=== PATIENT | male | born 1965 | race African-American/Black ===

== ENCOUNTER 2021-12-11 05:27 | Inpatient (IN) | payer OTHER ==
[2021-12-11] MEDS ORDERED: NITROGLYCERIN 2% OINTMENT - 1GM PACKET TD ONE ×2 (05:36)
[2021-12-11] MEDS ORDERED: FUROSEMIDE 40 MG/4 ML INJECTABLE VIAL IVPUSH ONE (05:36)
[2021-12-11] MEDS ORDERED: FUROSEMIDE 40 MG/4 ML INJECTABLE VIAL ONE (05:37)
[2021-12-11 05:39] VITALS: BMI 18.3
[2021-12-11] MEDS ORDERED: methylPREDNISolone NA SUCC 125 MG/2 ML VIAL IVPUSH ONE ×2 (05:44→05:45)
[2021-12-11] MEDS: ALBUTEROL SO4 2.5/IPRATROPIUM 0.5 INH SOL 3 ML VIAL.NEB. NEB SCH ×3 (05:47→18:40)
[2021-12-11 05:57] LABS: BASO % 0.9 % (0-2.0); EOS % 0.8 % (0-4.5); HEMATOCRIT 30.4 % (35.4-49); HEMOGLOBIN 10.1 GM/dL (11.7-16.9); LYMPH % 11.6 % (8-40); MCH 31.9 pg (25.7-33.7); MEAN CELL VOLUME 96.6 fl (80-96); MEAN PLT VOLUME 7.1 fl (7.5-11.1); MONO % 8.2 % (3.8-10.2); NEUT % 78.5 % (42.8-82.8); PLATELET COUNT 277 10^3/uL (134-434); RBC 3.15 M/mm3 (4.00-5.60); RDW 17.5 % (11.9-15.9); WHITE BLOOD COUNT 12.5 K/mm3 (4.0-10.0)
[2021-12-11 06:15] LABS: CHLORIDE 101 mmol/L (98-107); SODIUM 140 mmol/L (136-145)
[2021-12-11 06:17] LABS: CALCIUM 9.3 mg/dL (8.5-10.1)
[2021-12-11 06:18] LABS: ALBUMIN 3.2 g/dl (3.4-5.0); ANION GAP 11 MMOL/L (8-16); CO2 28 mmol/L (21-32); GLUCOSE,RANDOM 142 mg/dL (74-106)
[2021-12-11 06:21] LABS: CREATININE 6.2 mg/dL (0.55-1.3); SGOT/AST 17 U/L (15-37); SGPT/ALT 21 U/L (13-61)
[2021-12-11 06:22] LABS: BILIRUBIN,TOTAL 0.4 mg/dL (0.2-1); TOT PROT 6.9 g/dl (6.4-8.2)
[2021-12-11 06:24] LABS: ALK PHOS 89 U/L (45-117)
[2021-12-11 06:43] LABS: N-TERMINAL BNP 41284.4 pg/ml (5-125)
[2021-12-11 07:21] LABS: ARTERIAL BLD GAS O2 SATURATION 99.4 % (95-98); ARTERIAL BLOOD GAS BASE EXCESS 0.7 mmol/L (-2-2); ARTERIAL BLOOD GAS PO2 208.4 mmHg (80-100); ARTERIAL BLOOD GAS pH 7.388 (7.350-7.450)
[2021-12-11 07:22] LABS: ALLENS TEST POSITIVE; VENT MODE PSV
[2021-12-11 07:23] LABS: VENT RATE 14
[2021-12-11] MEDS ORDERED: morphine CARPU-JECT 2 MG/1 ML DISP.SYRIN IVPUSH ONE (08:22)
[2021-12-11] MEDS ORDERED: SODIUM CHLORIDE 250 ML IV PRN (11:20)
[2021-12-11] MEDS ORDERED: CEFTRIAXONE 1 GM/50 ML BAG ONE (13:35)
[2021-12-11] MEDS: CEFTRIAXONE 1 GM in DEXTROSE 5%-WATER - 50 ML IVPB SCH (14:04)
[2021-12-11] MEDS: GABAPENTIN 100 MG CAPSULE PO SCH ×2 (16:00→21:26)
[2021-12-11] MEDS: hydrALAZINE HCL 50 MG TABLET (FP) PO SCH ×2 (18:30→21:26)
[2021-12-11] MEDS: HEPARIN NA (PORCINE) 5,000 UNITS/ML 1ML VIAL SQ SCH (21:31)
[2021-12-11] MEDS: CARVEDILOL 25 MG TABLET (FP) PO SCH (21:31)
[2021-12-12] MEDS: hydrALAZINE HCL 50 MG TABLET (FP) PO SCH ×3 (06:16→21:18)
[2021-12-12] MEDS: GABAPENTIN 100 MG CAPSULE PO SCH ×3 (06:24→21:18)
[2021-12-12 06:50] LABS: BASO % 0.5 % (0-2.0); EOS % 0.3 % (0-4.5); HEMATOCRIT 24.5 % (35.4-49); HEMOGLOBIN 8.2 GM/dL (11.7-16.9); LYMPH % 16.9 % (8-40); MCHC 33.6 g/dl (32.0-35.9); MEAN CELL VOLUME 95.3 fl (80-96); MEAN PLT VOLUME 7.4 fl (7.5-11.1); MONO % 12.9 % (3.8-10.2); NEUT % 69.4 % (42.8-82.8); PLATELET COUNT 224 10^3/uL (134-434); RBC 2.57 M/mm3 (4.00-5.60); RDW 17.6 % (11.9-15.9); WHITE BLOOD COUNT 9.2 K/mm3 (4.0-10.0)
[2021-12-12 07:05] LABS: CHLORIDE 99 mmol/L (98-107); SODIUM 139 mmol/L (136-145)
[2021-12-12 07:08] LABS: ALBUMIN 2.8 g/dl (3.4-5.0); BLOOD UREA NITROGEN 41.6 mg/dL (7-18); CALCIUM 8.8 mg/dL (8.5-10.1); CALCIUM 9.2 mg/dL (8.5-10.1)
[2021-12-12 07:09] LABS: ANION GAP 7 MMOL/L (8-16); BLOOD UREA NITROGEN 40.9 mg/dL (7-18); CO2 32 mmol/L (21-32); GLUCOSE,RANDOM 125 mg/dL (74-106)
[2021-12-12 07:11] LABS: CREATININE 5.3 mg/dL (0.55-1.3)
[2021-12-12 07:12] LABS: CREATININE 5.3 mg/dL (0.55-1.3); TOT PROT 5.9 g/dl (6.4-8.2)
[2021-12-12 07:13] LABS: BILIRUBIN,TOTAL 0.4 mg/dL (0.2-1)
[2021-12-12] MEDS ORDERED: DEXTROSE 5%-WATER - 50 ML IVPB ONE (09:25)
[2021-12-12] MEDS ORDERED: cefTRIAXone SODIUM 1 GM VIAL ONE (09:25)
[2021-12-12] MEDS: CARVEDILOL 25 MG TABLET (FP) PO SCH ×2 (09:32→21:18)
[2021-12-12] MEDS: FUROSEMIDE 40 MG/4 ML INJECTABLE VIAL IVPB ONE ×2 (09:32→09:34)
[2021-12-12] MEDS: ROSUVASTATIN CA 10 MG TABLET PO SCH (09:32)
[2021-12-12] MEDS: ASPIRIN COATED 81 MG TABLET.EC PO SCH (09:33)
[2021-12-12] MEDS: amLODIPine BESYLATE 10 MG TABLET (FP) PO SCH (09:33)
[2021-12-12] MEDS: CEFTRIAXONE 1 GM in DEXTROSE 5%-WATER - 50 ML IVPB SCH (09:33)
[2021-12-12] MEDS: HEPARIN NA (PORCINE) 5,000 UNITS/ML 1ML VIAL SQ SCH ×2 (09:33→21:20)
[2021-12-12] MEDS ORDERED: SODIUM CHLORIDE 250 ML IV PRN (11:35)
[2021-12-13] MEDS: GABAPENTIN 100 MG CAPSULE PO SCH ×3 (05:41→21:44)
[2021-12-13] MEDS: hydrALAZINE HCL 50 MG TABLET (FP) PO SCH ×3 (05:41→21:44)
[2021-12-13] MEDS ORDERED: EPOETIN ALFA-EPBX 10,000 UNIT/ML VIAL IVPUSH ONE (08:00)
[2021-12-13 09:12] LABS: CHLORIDE 100 mmol/L (98-107); SODIUM 139 mmol/L (136-145)
[2021-12-13 09:13] LABS: HEMATOCRIT 23.6 % (35.4-49); MCH 32.5 pg (25.7-33.7); MCHC 33.7 g/dl (32.0-35.9); MEAN CELL VOLUME 96.2 fl (80-96); MEAN PLT VOLUME 7.4 fl (7.5-11.1); PLATELET COUNT 247 10^3/uL (134-434); RBC 2.46 M/mm3 (4.00-5.60); RDW 17.5 % (11.9-15.9); WHITE BLOOD COUNT 7.9 K/mm3 (4.0-10.0)
[2021-12-13 09:14] LABS: CALCIUM 8.1 mg/dL (8.5-10.1)
[2021-12-13 09:15] LABS: ANION GAP 11 MMOL/L (8-16); BLOOD UREA NITROGEN 57.2 mg/dL (7-18); CO2 28 mmol/L (21-32); GLUCOSE,RANDOM 84 mg/dL (74-106)
[2021-12-13 09:19] LABS: CREATININE 7.5 mg/dL (0.55-1.3)
[2021-12-13] MEDS ORDERED: cefTRIAXone SODIUM 1 GM VIAL ONE (11:07)
[2021-12-13] MEDS ORDERED: DEXTROSE 5%-WATER - 50 ML IVPB ONE (11:07)
[2021-12-13] MEDS: CEFTRIAXONE 1 GM in DEXTROSE 5%-WATER - 50 ML IVPB SCH (11:31)
[2021-12-13] MEDS: ASPIRIN COATED 81 MG TABLET.EC PO SCH (11:31)
[2021-12-13] MEDS: HEPARIN NA (PORCINE) 5,000 UNITS/ML 1ML VIAL SQ SCH ×2 (11:31→21:44)
[2021-12-13] MEDS: CARVEDILOL 25 MG TABLET (FP) PO SCH ×2 (11:32→21:44)
[2021-12-13] MEDS: amLODIPine BESYLATE 10 MG TABLET (FP) PO SCH (11:32)
[2021-12-13] MEDS: ROSUVASTATIN CA 10 MG TABLET PO SCH (11:32)
[2021-12-13] MEDS ORDERED: EPOETIN ALFA-EPBX 10,000 UNIT/ML VIAL SQ ONE (11:35)
[2021-12-13] MEDS ORDERED: SODIUM CHLORIDE 250 ML IV PRN (11:41)
[2021-12-14] MEDS: hydrALAZINE HCL 50 MG TABLET (FP) PO SCH ×3 (05:59→21:00)
[2021-12-14] MEDS: GABAPENTIN 100 MG CAPSULE PO SCH ×3 (06:00→21:00)
[2021-12-14] MEDS ORDERED: DEXTROSE 5%-WATER - 50 ML IVPB ONE (09:57)
[2021-12-14] MEDS ORDERED: cefTRIAXone SODIUM 1 GM VIAL ONE (09:57)
[2021-12-14] MEDS: CEFTRIAXONE 1 GM in DEXTROSE 5%-WATER - 50 ML IVPB SCH (10:08)
[2021-12-14] MEDS: ASPIRIN COATED 81 MG TABLET.EC PO SCH (10:08)
[2021-12-14] MEDS: amLODIPine BESYLATE 10 MG TABLET (FP) PO SCH (10:08)
[2021-12-14] MEDS: ROSUVASTATIN CA 10 MG TABLET PO SCH (10:08)
[2021-12-14] MEDS: CARVEDILOL 25 MG TABLET (FP) PO SCH ×2 (10:08→21:00)
[2021-12-14] MEDS: HEPARIN NA (PORCINE) 5,000 UNITS/ML 1ML VIAL SQ SCH ×2 (10:08→21:00)
[2021-12-14 12:52] LABS: HEMATOCRIT 24.1 % (35.4-49); MCH 31.7 pg (25.7-33.7); MEAN CELL VOLUME 96.1 fl (80-96); MEAN PLT VOLUME 6.8 fl (7.5-11.1); PLATELET COUNT 240 10^3/uL (134-434); RBC 2.51 M/mm3 (4.00-5.60); RDW 17.8 % (11.9-15.9); WHITE BLOOD COUNT 5.2 K/mm3 (4.0-10.0)
[2021-12-14 13:20] LABS: CALCIUM 8.6 mg/dL (8.5-10.1)
[2021-12-14 13:24] LABS: BLOOD UREA NITROGEN 29.2 mg/dL (7-18); CREATININE 4.6 mg/dL (0.55-1.3)
[2021-12-14] MEDS ORDERED: ACETAMINOPHEN 1000 MG/100 ML BAG IVPB ONE (20:00)
[2021-12-15] MEDS: GABAPENTIN 100 MG CAPSULE PO SCH ×3 (05:19→21:00)
[2021-12-15] MEDS: hydrALAZINE HCL 50 MG TABLET (FP) PO SCH ×3 (05:19→21:00)
[2021-12-15] MEDS ORDERED: ACETAMINOPHEN 1000 MG/100 ML BAG IVPB ONE (06:45)
[2021-12-15] MEDS ORDERED: cefTRIAXone SODIUM 1 GM VIAL ONE (10:06)
[2021-12-15] MEDS ORDERED: DEXTROSE 5%-WATER - 50 ML IVPB ONE (10:06)
[2021-12-15] MEDS: CEFTRIAXONE 1 GM in DEXTROSE 5%-WATER - 50 ML IVPB SCH (10:30)
[2021-12-15] MEDS: ROSUVASTATIN CA 10 MG TABLET PO SCH (10:30)
[2021-12-15] MEDS: CARVEDILOL 25 MG TABLET (FP) PO SCH ×2 (10:30→21:00)
[2021-12-15] MEDS: amLODIPine BESYLATE 10 MG TABLET (FP) PO SCH (10:30)
[2021-12-15] MEDS: HEPARIN NA (PORCINE) 5,000 UNITS/ML 1ML VIAL SQ SCH ×2 (10:31→21:00)
[2021-12-15] MEDS: ASPIRIN COATED 81 MG TABLET.EC PO SCH (10:31)
[2021-12-15] MEDS ORDERED: SODIUM CHLORIDE 250 ML IV PRN (12:18)
[2021-12-15] MEDS ORDERED: EPOETIN ALFA-EPBX 10,000 UNIT/ML VIAL SQ ONE (13:00)
[2021-12-16] MEDS: ACETAMINOPHEN 1000 MG/100 ML BAG IVPB PRN ×2 (00:07→10:39)
[2021-12-16] MEDS: GABAPENTIN 100 MG CAPSULE PO SCH ×3 (05:17→21:53)
[2021-12-16] MEDS: hydrALAZINE HCL 50 MG TABLET (FP) PO SCH ×3 (05:18→21:52)
[2021-12-16] MEDS ORDERED: cefTRIAXone SODIUM 1 GM VIAL ONE (08:20)
[2021-12-16] MEDS ORDERED: DEXTROSE 5%-WATER - 50 ML IVPB ONE (08:21)
[2021-12-16] MEDS: HEPARIN NA (PORCINE) 5,000 UNITS/ML 1ML VIAL SQ SCH ×2 (09:58→21:56)
[2021-12-16] MEDS: ROSUVASTATIN CA 10 MG TABLET PO SCH (09:58)
[2021-12-16] MEDS: amLODIPine BESYLATE 10 MG TABLET (FP) PO SCH (09:58)
[2021-12-16] MEDS: CARVEDILOL 25 MG TABLET (FP) PO SCH ×2 (09:59→21:53)
[2021-12-16] MEDS: CEFTRIAXONE 1 GM in DEXTROSE 5%-WATER - 50 ML IVPB SCH (09:59)
[2021-12-16] MEDS: ASPIRIN COATED 81 MG TABLET.EC PO SCH (09:59)
[2021-12-16] MEDS ORDERED: SODIUM CHLORIDE 250 ML IV PRN (11:32)
[2021-12-16] MEDS: ACETAMINOPHEN 325 MG TABLET (FP) PO PRN (22:43)
[2021-12-17] MEDS: hydrALAZINE HCL 50 MG TABLET (FP) PO SCH ×3 (06:49→21:40)
[2021-12-17] MEDS: GABAPENTIN 100 MG CAPSULE PO SCH ×3 (06:49→21:41)
[2021-12-17] MEDS ORDERED: EPOETIN ALFA-EPBX 10,000 UNIT/ML VIAL SQ ONE (07:00)
[2021-12-17 07:37] LABS: HEMATOCRIT 24.9 % (35.4-49); HEMOGLOBIN 8.2 GM/dL (11.7-16.9); MCH 32.2 pg (25.7-33.7); MCHC 33.1 g/dl (32.0-35.9); MEAN CELL VOLUME 97.2 fl (80-96); MEAN PLT VOLUME 6.8 fl (7.5-11.1); PLATELET COUNT 265 10^3/uL (134-434); RBC 2.56 M/mm3 (4.00-5.60); RDW 18.7 % (11.9-15.9); WHITE BLOOD COUNT 7.1 K/mm3 (4.0-10.0)
[2021-12-17 07:59] LABS: CALCIUM 8.7 mg/dL (8.5-10.1)
[2021-12-17 08:00] LABS: ALBUMIN 2.4 g/dl (3.4-5.0); BLOOD UREA NITROGEN 38.2 mg/dL (7-18)
[2021-12-17 08:03] LABS: CREATININE 5.9 mg/dL (0.55-1.3); PHOSPHOROUS 5.1 mg/dL (2.5-4.9)
[2021-12-17 08:04] LABS: TOT PROT 5.6 g/dl (6.4-8.2)
[2021-12-17 08:05] LABS: BILIRUBIN,TOTAL 0.3 mg/dL (0.2-1)
[2021-12-17] MEDS ORDERED: cefTRIAXone SODIUM 1 GM VIAL ONE (09:24)
[2021-12-17] MEDS ORDERED: DEXTROSE 5%-WATER - 50 ML IVPB ONE (09:24)
[2021-12-17 10:35] LABS: ANISOCYTOSIS 1+; MACROCYTOSIS 1+; OVALOCYTE 1+
[2021-12-17] MEDS: HEPARIN NA (PORCINE) 5,000 UNITS/ML 1ML VIAL SQ SCH ×2 (11:59→21:38)
[2021-12-17] MEDS: ROSUVASTATIN CA 10 MG TABLET PO SCH (11:59)
[2021-12-17] MEDS: CEFTRIAXONE 1 GM in DEXTROSE 5%-WATER - 50 ML IVPB SCH (11:59)
[2021-12-17] MEDS: CARVEDILOL 25 MG TABLET (FP) PO SCH ×2 (12:00→21:40)
[2021-12-17] MEDS: amLODIPine BESYLATE 10 MG TABLET (FP) PO SCH (12:00)
[2021-12-17] MEDS: ASPIRIN COATED 81 MG TABLET.EC PO SCH (12:00)
[2021-12-17] MEDS: DEXAMETHASONE SOD PHOSPHATE 10 MG/1 ML VIAL IM SCH (16:02)
[2021-12-17] MEDS: ALBUTEROL SO4 2.5/IPRATROPIUM 0.5 INH SOL 3 ML VIAL.NEB. NEB SCH ×2 (16:45→20:23)
[2021-12-17] MEDS: ACETAMINOPHEN 325 MG TABLET (FP) PO PRN (20:38)
[2021-12-18] MEDS: hydrALAZINE HCL 50 MG TABLET (FP) PO SCH ×3 (05:41→21:24)
[2021-12-18] MEDS: GABAPENTIN 100 MG CAPSULE PO SCH ×3 (05:41→21:24)
[2021-12-18] MEDS: ALBUTEROL SO4 2.5/IPRATROPIUM 0.5 INH SOL 3 ML VIAL.NEB. NEB SCH ×4 (08:53→20:12)
[2021-12-18] MEDS ORDERED: DEXTROSE 5%-WATER - 50 ML IVPB ONE (09:53)
[2021-12-18] MEDS ORDERED: cefTRIAXone SODIUM 1 GM VIAL ONE (09:53)
[2021-12-18] MEDS: ASPIRIN COATED 81 MG TABLET.EC PO SCH (09:59)
[2021-12-18] MEDS: amLODIPine BESYLATE 10 MG TABLET (FP) PO SCH (09:59)
[2021-12-18] MEDS: DEXAMETHASONE SOD PHOSPHATE 10 MG/1 ML VIAL IM SCH (10:00)
[2021-12-18] MEDS: CARVEDILOL 25 MG TABLET (FP) PO SCH ×2 (10:00→21:30)
[2021-12-18] MEDS: ROSUVASTATIN CA 10 MG TABLET PO SCH (10:00)
[2021-12-18] MEDS: HEPARIN NA (PORCINE) 5,000 UNITS/ML 1ML VIAL SQ SCH (10:00)
[2021-12-18] MEDS: CEFTRIAXONE 1 GM in DEXTROSE 5%-WATER - 50 ML IVPB SCH (10:01)
[2021-12-18] MEDS: ISOSORBIDE DINITRATE 20 MG TABLET PO SCH ×2 (13:34→17:54)
[2021-12-19] MEDS: GABAPENTIN 100 MG CAPSULE PO SCH ×3 (05:31→21:01)
[2021-12-19] MEDS: hydrALAZINE HCL 50 MG TABLET (FP) PO SCH ×3 (05:32→21:01)
[2021-12-19] MEDS: ALBUTEROL SO4 2.5/IPRATROPIUM 0.5 INH SOL 3 ML VIAL.NEB. NEB SCH ×4 (07:32→20:13)
[2021-12-19] MEDS: ISOSORBIDE DINITRATE 20 MG TABLET PO SCH ×3 (08:43→17:33)
[2021-12-19] MEDS: ROSUVASTATIN CA 10 MG TABLET PO SCH (09:01)
[2021-12-19] MEDS: CARVEDILOL 25 MG TABLET (FP) PO SCH ×2 (09:01→21:01)
[2021-12-19] MEDS: amLODIPine BESYLATE 10 MG TABLET (FP) PO SCH (09:01)
[2021-12-19] MEDS: ASPIRIN COATED 81 MG TABLET.EC PO SCH (09:01)
[2021-12-19] MEDS: ACETAMINOPHEN 325 MG TABLET (FP) PO PRN (18:07)
[2021-12-20] MEDS: GABAPENTIN 100 MG CAPSULE PO SCH ×3 (05:31→21:05)
[2021-12-20] MEDS: hydrALAZINE HCL 50 MG TABLET (FP) PO SCH ×3 (05:31→21:05)
[2021-12-20] MEDS ORDERED: SODIUM CHLORIDE 250 ML IV PRN (08:23)
[2021-12-20] MEDS: ALBUTEROL SO4 2.5/IPRATROPIUM 0.5 INH SOL 3 ML VIAL.NEB. NEB SCH ×4 (08:40→21:00)
[2021-12-20] MEDS: ISOSORBIDE DINITRATE 20 MG TABLET PO SCH ×3 (08:50→17:47)
[2021-12-20 09:30] LABS: HEMATOCRIT 27.5 % (35.4-49); MCH 32.3 pg (25.7-33.7); MCHC 32.7 g/dl (32.0-35.9); MEAN CELL VOLUME 98.8 fl (80-96); MEAN PLT VOLUME 6.8 fl (7.5-11.1); PLATELET COUNT 315 10^3/uL (134-434); RBC 2.78 M/mm3 (4.00-5.60); RDW 19.4 % (11.9-15.9); WHITE BLOOD COUNT 9.4 K/mm3 (4.0-10.0)
[2021-12-20 09:49] LABS: CHLORIDE 100 mmol/L (98-107); SODIUM 140 mmol/L (136-145)
[2021-12-20 09:51] LABS: CALCIUM 8.8 mg/dL (8.5-10.1)
[2021-12-20 09:52] LABS: ALBUMIN 2.8 g/dl (3.4-5.0); ANION GAP 14 MMOL/L (8-16); CO2 26 mmol/L (21-32); GLUCOSE,RANDOM 89 mg/dL (74-106)
[2021-12-20 09:55] LABS: SGOT/AST 9 U/L (15-37); SGPT/ALT 25 U/L (13-61)
[2021-12-20 09:56] LABS: TOT PROT 6.2 g/dl (6.4-8.2)
[2021-12-20 09:57] LABS: BILIRUBIN,TOTAL 0.3 mg/dL (0.2-1)
[2021-12-20 09:58] LABS: ALK PHOS 87 U/L (45-117)
[2021-12-20 10:07] LABS: BLOOD UREA NITROGEN 66.2 mg/dL (7-18); CREATININE 8.5 mg/dL (0.55-1.3)
[2021-12-20 10:16] LABS: ANISOCYTOSIS 2+; MACROCYTOSIS 2+
[2021-12-20] MEDS: ROSUVASTATIN CA 10 MG TABLET PO SCH (10:39)
[2021-12-20] MEDS: ASPIRIN COATED 81 MG TABLET.EC PO SCH (10:39)
[2021-12-20] MEDS: CARVEDILOL 25 MG TABLET (FP) PO SCH ×2 (15:10→21:05)
[2021-12-20] MEDS: amLODIPine BESYLATE 10 MG TABLET (FP) PO SCH (15:11)
[2021-12-21] MEDS: hydrALAZINE HCL 50 MG TABLET (FP) PO SCH ×3 (06:12→21:55)
[2021-12-21] MEDS: GABAPENTIN 100 MG CAPSULE PO SCH ×3 (06:12→21:56)
[2021-12-21 06:46] LABS: HEMATOCRIT 25.5 % (35.4-49); HEMOGLOBIN 8.3 GM/dL (11.7-16.9); MCH 32.3 pg (25.7-33.7); MCHC 32.5 g/dl (32.0-35.9); MEAN CELL VOLUME 99.4 fl (80-96); MEAN PLT VOLUME 6.7 fl (7.5-11.1); PLATELET COUNT 288 10^3/uL (134-434); RBC 2.56 M/mm3 (4.00-5.60); RDW 19.6 % (11.9-15.9); WHITE BLOOD COUNT 8.4 K/mm3 (4.0-10.0)
[2021-12-21] MEDS: ALBUTEROL SO4 2.5/IPRATROPIUM 0.5 INH SOL 3 ML VIAL.NEB. NEB SCH ×4 (08:30→20:35)
[2021-12-21] MEDS: ISOSORBIDE DINITRATE 20 MG TABLET PO SCH ×3 (08:45→18:37)
[2021-12-21] MEDS ORDERED: REGADENOSON 0.4 MG/5 ML PRE-FILLED SYRINGE IVPUSH ONE ×2 (09:00→09:15)
[2021-12-21] MEDS: amLODIPine BESYLATE 10 MG TABLET (FP) PO SCH (11:00)
[2021-12-21] MEDS: ASPIRIN COATED 81 MG TABLET.EC PO SCH (13:39)
[2021-12-21] MEDS: ROSUVASTATIN CA 10 MG TABLET PO SCH (13:40)
[2021-12-21] MEDS: CARVEDILOL 25 MG TABLET (FP) PO SCH ×2 (13:40→21:56)
[2021-12-22] MEDS: hydrALAZINE HCL 50 MG TABLET (FP) PO SCH ×3 (06:04→21:31)
[2021-12-22] MEDS: GABAPENTIN 100 MG CAPSULE PO SCH ×3 (06:04→21:30)
[2021-12-22] MEDS: ALBUTEROL SO4 2.5/IPRATROPIUM 0.5 INH SOL 3 ML VIAL.NEB. NEB SCH ×2 (07:27→11:20)
[2021-12-22] MEDS: ISOSORBIDE DINITRATE 20 MG TABLET PO SCH ×3 (08:59→17:51)
[2021-12-22] MEDS ORDERED: EPOETIN ALFA-EPBX 10,000 UNIT/ML VIAL SQ ONE (11:30)
[2021-12-22 12:17] LABS: HEMATOCRIT 25.7 % (35.4-49); HEMOGLOBIN 8.6 GM/dL (11.7-16.9); MCH 32.7 pg (25.7-33.7); MCHC 33.3 g/dl (32.0-35.9); MEAN CELL VOLUME 98.2 fl (80-96); MEAN PLT VOLUME 6.9 fl (7.5-11.1); PLATELET COUNT 307 10^3/uL (134-434); RBC 2.62 M/mm3 (4.00-5.60); RDW 20.4 % (11.9-15.9); WHITE BLOOD COUNT 6.3 K/mm3 (4.0-10.0)
[2021-12-22 12:40] LABS: CALCIUM 8.2 mg/dL (8.5-10.1)
[2021-12-22 12:41] LABS: BLOOD UREA NITROGEN 50.6 mg/dL (7-18)
[2021-12-22] MEDS ORDERED: SODIUM CHLORIDE 250 ML IV PRN (12:46)
[2021-12-22 12:53] LABS: CREATININE 7.4 mg/dL (0.55-1.3)
[2021-12-22] MEDS: amLODIPine BESYLATE 10 MG TABLET (FP) PO SCH (14:40)
[2021-12-22] MEDS: ASPIRIN COATED 81 MG TABLET.EC PO SCH (14:42)
[2021-12-22] MEDS: ROSUVASTATIN CA 10 MG TABLET PO SCH (14:42)
[2021-12-22] MEDS: CARVEDILOL 25 MG TABLET (FP) PO SCH ×2 (14:44→21:31)
[2021-12-23] MEDS: GABAPENTIN 100 MG CAPSULE PO SCH ×3 (05:35→21:05)
[2021-12-23] MEDS: hydrALAZINE HCL 50 MG TABLET (FP) PO SCH ×3 (05:36→21:05)
[2021-12-23] MEDS: ISOSORBIDE DINITRATE 20 MG TABLET PO SCH ×3 (08:44→17:47)
[2021-12-23] MEDS: amLODIPine BESYLATE 10 MG TABLET (FP) PO SCH (10:36)
[2021-12-23] MEDS: CARVEDILOL 25 MG TABLET (FP) PO SCH ×2 (10:36→21:05)
[2021-12-23] MEDS: ROSUVASTATIN CA 10 MG TABLET PO SCH (10:36)
[2021-12-23] MEDS: ASPIRIN COATED 81 MG TABLET.EC PO SCH (10:36)
[2021-12-23] MEDS ORDERED: SODIUM CHLORIDE 250 ML IV PRN (14:07)
[2021-12-24] MEDS: ALBUTEROL SO4 2.5/IPRATROPIUM 0.5 INH SOL 3 ML VIAL.NEB. NEB PRN ×2 (01:34→20:28)
[2021-12-24] MEDS: hydrALAZINE HCL 50 MG TABLET (FP) PO SCH ×3 (05:51→21:00)
[2021-12-24] MEDS: GABAPENTIN 100 MG CAPSULE PO SCH ×3 (05:52→21:00)
[2021-12-24] MEDS: ISOSORBIDE DINITRATE 20 MG TABLET PO SCH ×3 (08:55→17:35)
[2021-12-24] MEDS: ASPIRIN COATED 81 MG TABLET.EC PO SCH (09:47)
[2021-12-24] MEDS: ROSUVASTATIN CA 10 MG TABLET PO SCH (09:47)
[2021-12-24] MEDS: CARVEDILOL 25 MG TABLET (FP) PO SCH ×2 (10:00→21:00)
[2021-12-24] MEDS: amLODIPine BESYLATE 10 MG TABLET (FP) PO SCH (10:00)
[2021-12-24] MEDS ORDERED: EPOETIN ALFA-EPBX 10,000 UNIT/ML VIAL SQ ONE (14:30)
[2021-12-24 15:00] LABS: HEMATOCRIT 27.3 % (35.4-49); HEMOGLOBIN 8.9 GM/dL (11.7-16.9); MCHC 32.5 g/dl (32.0-35.9); MEAN CELL VOLUME 98.3 fl (80-96); MEAN PLT VOLUME 6.9 fl (7.5-11.1); PLATELET COUNT 344 10^3/uL (134-434); RBC 2.78 M/mm3 (4.00-5.60); RDW 20.4 % (11.9-15.9)
[2021-12-24 15:17] LABS: CHLORIDE 103 mmol/L (98-107); SODIUM 143 mmol/L (136-145)
[2021-12-24 15:18] LABS: CALCIUM 8.5 mg/dL (8.5-10.1)
[2021-12-24 15:19] LABS: ANION GAP 12 MMOL/L (8-16); CO2 28 mmol/L (21-32); GLUCOSE,RANDOM 145 mg/dL (74-106)
[2021-12-24 15:25] LABS: CREATININE 7.5 mg/dL (0.55-1.3)
[2021-12-25] MEDS: ALBUTEROL SO4 2.5/IPRATROPIUM 0.5 INH SOL 3 ML VIAL.NEB. NEB PRN (01:10)
[2021-12-25] MEDS ORDERED: ALBUTEROL SO4 2.5/IPRATROPIUM 0.5 INH SOL 3 ML VIAL.NEB. NEB PRN (01:29)
[2021-12-25] MEDS: GABAPENTIN 100 MG CAPSULE PO SCH ×3 (06:08→21:02)
[2021-12-25] MEDS: hydrALAZINE HCL 50 MG TABLET (FP) PO SCH ×3 (06:08→21:02)
[2021-12-25] MEDS: amLODIPine BESYLATE 10 MG TABLET (FP) PO SCH (10:26)
[2021-12-25] MEDS: ASPIRIN COATED 81 MG TABLET.EC PO SCH (10:26)
[2021-12-25] MEDS: ROSUVASTATIN CA 10 MG TABLET PO SCH (10:26)
[2021-12-25] MEDS: CARVEDILOL 25 MG TABLET (FP) PO SCH ×2 (10:26→21:03)
[2021-12-25] MEDS: ISOSORBIDE DINITRATE 20 MG TABLET PO SCH ×3 (10:26→17:48)
[2021-12-25 22:38] VITALS: BP 124/74; PULSE 98; TEMP 98.9
== END 2021-12-25 23:46 | disposition short-term general hospital (02) | DRG 291 ==
LOC: JER 05:27 → JERBED 08:24 → J4S 14:57
PROVIDERS: ADMIT Internal Medicine; ATTEND Internal Medicine
PROC: 5A1D70Z Performance of Urinary Filtration, Intermittent, Less than 6 Hours Per Day (ICD-10-PCS; principal; 2021-12-11)
PROC: 5A1D70Z Performance of Urinary Filtration, Intermittent, Less than 6 Hours Per Day (ICD-10-PCS; 2021-12-13)
PROC: 5A1D70Z Performance of Urinary Filtration, Intermittent, Less than 6 Hours Per Day (ICD-10-PCS; 2021-12-14)
PROC: 5A1D70Z Performance of Urinary Filtration, Intermittent, Less than 6 Hours Per Day (ICD-10-PCS; 2021-12-15)
PROC: 5A1D70Z Performance of Urinary Filtration, Intermittent, Less than 6 Hours Per Day (ICD-10-PCS; 2021-12-17)
PROC: 5A1D70Z Performance of Urinary Filtration, Intermittent, Less than 6 Hours Per Day (ICD-10-PCS; 2021-12-20)
PROC: 5A1D70Z Performance of Urinary Filtration, Intermittent, Less than 6 Hours Per Day (ICD-10-PCS; 2021-12-22)
PROC: 5A1D70Z Performance of Urinary Filtration, Intermittent, Less than 6 Hours Per Day (ICD-10-PCS; 2021-12-24)
DX: I13.2 Hypertensive heart and chronic kidney disease with heart failure and with stage 5 chronic kidney disease, or end stage renal disease (principal); J96.01 Acute respiratory failure with hypoxia; N18.6 End stage renal disease; I50.43 Acute on chronic combined systolic (congestive) and diastolic (congestive) heart failure; J18.9 Pneumonia, unspecified organism; J81.1 Chronic pulmonary edema; E78.5 Hyperlipidemia, unspecified; J45.909 Unspecified asthma, uncomplicated; D64.9 Anemia, unspecified; E87.70 Fluid overload, unspecified; Z99.2 Dependence on renal dialysis; D72.829 Elevated white blood cell count, unspecified; R77.8 Other specified abnormalities of plasma proteins; I25.10 Atherosclerotic heart disease of native coronary artery without angina pectoris; I73.9 Peripheral vascular disease, unspecified; Z91.14 Patient's other noncompliance with medication regimen; I71.9 Aortic aneurysm of unspecified site, without rupture
CPT/HCPCS: 36415; 36600; 71045-TC-FY; 74176-TC; 78452-TC; 80048; 80053; 82803; 82962; 83735; 83880; 84100; 84484; 85025; 85027; 86803; 86850; 86900; 86901; 87340; 93005; 93010; 93017; 93306-TC; 94640; 94660; 97116-GP; 97161-GP; 99291; 99292; A9502; C9803-CS; J1100; J1644; J2785; Q5106; U0003; U0005

== ENCOUNTER 2022-01-19 19:47 | Observation (INO) | payer OTHER ==
[2022-01-19 22:49] LABS: BASO % 0.5 % (0-2.0); EOS % 1.4 % (0-4.5); HEMOGLOBIN 12.5 GM/dL (11.7-16.9); LYMPH % 8.9 % (8-40); MCH 30.8 pg (25.7-33.7); MCHC 32.8 g/dl (32.0-35.9); MEAN CELL VOLUME 94.1 fl (80-96); MEAN PLT VOLUME 6.7 fl (7.5-11.1); MONO % 8.3 % (3.8-10.2); NEUT % 80.9 % (42.8-82.8); PLATELET COUNT 236 10^3/uL (134-434); RBC 4.04 M/mm3 (4.00-5.60); RDW 17.6 % (11.9-15.9); WHITE BLOOD COUNT 8.6 K/mm3 (4.0-10.0)
[2022-01-19 23:13] LABS: CALCIUM 9.7 mg/dL (8.5-10.1)
[2022-01-19 23:14] LABS: ALBUMIN 3.5 g/dl (3.4-5.0); BLOOD UREA NITROGEN 24.7 mg/dL (7-18); MAGNESIUM 2.4 mg/dL (1.8-2.4)
[2022-01-19 23:17] LABS: CREATININE 5.9 mg/dL (0.55-1.3)
[2022-01-19 23:19] LABS: BILIRUBIN,TOTAL 0.3 mg/dL (0.2-1); TOT PROT 7.3 g/dl (6.4-8.2)
[2022-01-20] MEDS ORDERED: AZITHROMYCIN IVPB 500 MG in DEXTROSE 5%-WATER - 250 ML IVPB ONE (02:04)
[2022-01-20] MEDS ORDERED: CEFTRIAXONE 1,000 MG in DEXTROSE 5%-WATER - 50 ML IVPB ONE (02:04)
[2022-01-20] MEDS ORDERED: CEFTRIAXONE 1 GM/50 ML BAG ONE (02:49)
[2022-01-20] MEDS ORDERED: AZITHROMYCIN IVPB 500 MG/250 ML BAG IVPB ONE (04:05)
[2022-01-20] MEDS ORDERED: ACETAMINOPHEN INJECTION 100 ML IVPB ONE (04:10)
[2022-01-20] MEDS ORDERED: ACETAMINOPHEN 1000 MG/100 ML BAG IVPB ONE (04:17)
[2022-01-20] MEDS ORDERED: DOXYCYCLINE INJECTION 100 MG in DEXTROSE 5%-WATER 100 ML IVPB ONE (04:26)
[2022-01-20] MEDS ORDERED: DOXYCYCLINE HYCLATE 100 MG VIAL ONE (04:54)
[2022-01-20] MEDS ORDERED: SODIUM CHLORIDE 250 ML IV PRN (06:01)
[2022-01-20] MEDS ORDERED: HEPARIN NA (PORCINE) 5,000 UNITS/ML 1ML VIAL ONE (06:21)
[2022-01-20] MEDS: HEPARIN NA (PORCINE) 5,000 UNITS/ML 1ML VIAL SQ SCH ×3 (06:26→22:17)
[2022-01-20] MEDS: ASPIRIN COATED 81 MG TABLET.EC PO SCH (09:44)
[2022-01-20] MEDS: amLODIPine BESYLATE 10 MG TABLET (FP) PO SCH (09:45)
[2022-01-20] MEDS: hydrALAZINE HCL 50 MG TABLET (FP) PO SCH ×2 (14:35→22:17)
[2022-01-20] MEDS: oxyCODONE HCL 5 MG TABLET PO PRN (14:36)
[2022-01-20] MEDS: GABAPENTIN 100 MG CAPSULE PO SCH ×2 (14:38→22:17)
[2022-01-20] MEDS ORDERED: oxyCODONE HCL 5 MG TABLET PO ONE (15:56)
[2022-01-20] MEDS: ACETAMINOPHEN 500 MG TABLET (FP) PO PRN ×2 (16:41→22:41)
[2022-01-20] MEDS: SEVELAMER CARBONATE 800 MG TAB (FP) PO SCH ×3 (16:44→18:56)
[2022-01-20 17:22] VITALS: BMI 22.4
[2022-01-20] MEDS: ISOSORBIDE DINITRATE 10 MG TABLET PO SCH (19:00)
[2022-01-20] MEDS ORDERED: NORTRIPTYLINE HCL 25 MG CAPSULE PO SCH (22:00)
[2022-01-20] MEDS ORDERED: ROSUVASTATIN CA 10 MG TABLET PO SCH (22:00)
[2022-01-20] MEDS: CARVEDILOL 3.125 MG TABLET (FP) PO SCH (22:17)
[2022-01-21] MEDS: oxyCODONE HCL 5 MG TABLET PO PRN ×2 (00:17→09:21)
[2022-01-21] MEDS: hydrALAZINE HCL 50 MG TABLET (FP) PO SCH ×2 (05:17→14:03)
[2022-01-21] MEDS: HEPARIN NA (PORCINE) 5,000 UNITS/ML 1ML VIAL SQ SCH ×2 (05:18→14:03)
[2022-01-21] MEDS: GABAPENTIN 100 MG CAPSULE PO SCH ×2 (05:18→14:03)
[2022-01-21] MEDS: ACETAMINOPHEN 500 MG TABLET (FP) PO PRN (06:45)
[2022-01-21 08:43] LABS: BASO % 1.2 % (0-2.0); EOS % 10.5 % (0-4.5); HEMATOCRIT 37.5 % (35.4-49); HEMOGLOBIN 12.5 GM/dL (11.7-16.9); LYMPH % 21.4 % (8-40); MCH 31.3 pg (25.7-33.7); MCHC 33.3 g/dl (32.0-35.9); MEAN PLT VOLUME 7.7 fl (7.5-11.1); NEUT % 50.9 % (42.8-82.8); PLATELET COUNT 267 10^3/uL (134-434); RBC 3.99 M/mm3 (4.00-5.60); RDW 17.3 % (11.9-15.9); WHITE BLOOD COUNT 6.2 K/mm3 (4.0-10.0)
[2022-01-21 08:55] LABS: CALCIUM 9.5 mg/dL (8.5-10.1)
[2022-01-21 08:56] LABS: ALBUMIN 3.3 g/dl (3.4-5.0); BLOOD UREA NITROGEN 23.2 mg/dL (7-18)
[2022-01-21 08:57] LABS: MAGNESIUM 2.3 mg/dL (1.8-2.4)
[2022-01-21 08:59] LABS: CREATININE 5.7 mg/dL (0.55-1.3); PHOSPHOROUS 6.4 mg/dL (2.5-4.9)
[2022-01-21 09:00] LABS: BILIRUBIN,TOTAL 0.4 mg/dL (0.2-1); TOT PROT 7.2 g/dl (6.4-8.2)
[2022-01-21] MEDS: ASPIRIN COATED 81 MG TABLET.EC PO SCH (09:23)
[2022-01-21] MEDS: SEVELAMER CARBONATE 800 MG TAB (FP) PO SCH ×3 (09:23→18:20)
[2022-01-21] MEDS: ISOSORBIDE DINITRATE 10 MG TABLET PO SCH ×4 (09:24→18:24)
[2022-01-21] MEDS: CARVEDILOL 3.125 MG TABLET (FP) PO SCH (09:24)
[2022-01-21] MEDS: amLODIPine BESYLATE 10 MG TABLET (FP) PO SCH (09:24)
[2022-01-21] MEDS ORDERED: oxyCODONE HCL 5 MG TABLET PO PRN (11:06)
[2022-01-21] MEDS ORDERED: SODIUM CHLORIDE 250 ML IV PRN (12:59)
[2022-01-21] MEDS ORDERED: ACETAMINOPHEN 500 MG TABLET (FP) PO PRN (13:38)
[2022-01-21 18:26] VITALS: BP 108/75; PULSE 106; TEMP 98.2
== END 2022-01-21 20:25 | disposition home or self-care (01) ==
LOC: JER 19:47 → UNDOADMOB 01-20 01:59 → INTOOBSV 01-20 01:59 → JERBED 01-20 01:59 → J7W 01-20 07:54 → JERBED 01-20 07:54 → J7W 01-20 07:54
PROVIDERS: ADMIT Internal Medicine; ATTEND Internal Medicine
PROC: 3E03329 Introduction of Other Anti-infective into Peripheral Vein, Percutaneous Approach (ICD-10-PCS; principal; 2022-01-20)
PROC: 3E033NZ Introduction of Analgesics, Hypnotics, Sedatives into Peripheral Vein, Percutaneous Approach (ICD-10-PCS; 2022-01-20)
DX: R55 Syncope and collapse (principal); J96.90 Respiratory failure, unspecified, unspecified whether with hypoxia or hypercapnia; V00.848A Other accident with standing micro-mobility pedestrian conveyance, initial encounter; Y93.89 Activity, other specified; Y92.410 Unspecified street and highway as the place of occurrence of the external cause; E78.5 Hyperlipidemia, unspecified; J44.9 Chronic obstructive pulmonary disease, unspecified; N18.6 End stage renal disease; Z99.2 Dependence on renal dialysis; Z86.16 Personal history of COVID-19; Z87.891 Personal history of nicotine dependence; E87.70 Fluid overload, unspecified; Z99.81 Dependence on supplemental oxygen; J45.909 Unspecified asthma, uncomplicated
CPT/HCPCS: 36415; 71046-TC-FY; 71275-TC; 73130-TC-LT-FY; 73562-TC-LT-FY; 73562-TC-RT-FY; 73630-TC-LT; 73630-TC-RT-FY; 80053; 83735; 83880; 84100; 84484; 85025; 85379; 86803; 87340; 93005; 93010; 93880-TC; 99285-25; C9803-CS; G0378; J1644; Q9967; U0003; U0005

== ENCOUNTER 2022-03-14 13:41 | Inpatient (IN) | payer OTHER ==
[2022-03-14 14:05] VITALS: BMI 20.7
[2022-03-14 15:21] LABS: BASO % 0.4 % (0-2.0); EOS % 1.4 % (0-4.5); HEMATOCRIT 30.6 % (35.4-49); LYMPH % 11.8 % (8-40); MCH 29.4 pg (25.7-33.7); MCHC 32.7 g/dl (32.0-35.9); MEAN CELL VOLUME 89.9 fl (80-96); MONO % 16.9 % (3.8-10.2); NEUT % 69.5 % (42.8-82.8); PLATELET COUNT 212 10^3/uL (134-434); RDW 17.8 % (11.9-15.9); WHITE BLOOD COUNT 8.3 K/mm3 (4.0-10.0)
[2022-03-14 15:38] LABS: CHLORIDE 97 mmol/L (98-107); SODIUM 137 mmol/L (136-145)
[2022-03-14 15:40] LABS: ALBUMIN 3.2 g/dl (3.4-5.0); ANION GAP 15 MMOL/L (8-16); BLOOD UREA NITROGEN 79.4 mg/dL (7-18); CALCIUM 8.6 mg/dL (8.5-10.1); CO2 25 mmol/L (21-32); GLUCOSE,RANDOM 96 mg/dL (74-106); MAGNESIUM 2.4 mg/dL (1.8-2.4)
[2022-03-14 15:43] LABS: SGOT/AST 8 U/L (15-37); SGPT/ALT 9 U/L (13-61)
[2022-03-14 15:44] LABS: PHOSPHOROUS 6.2 mg/dL (2.5-4.9)
[2022-03-14 15:45] LABS: BILIRUBIN,TOTAL 0.4 mg/dL (0.2-1)
[2022-03-14 15:46] LABS: ALK PHOS 94 U/L (45-117)
[2022-03-14 15:48] LABS: CREATININE 16.5 mg/dL (0.55-1.3)
[2022-03-14] MEDS ORDERED: SODIUM CHLORIDE 250 ML IV PRN (16:27)
[2022-03-14] MEDS ORDERED: hydrALAZINE HCL 50 MG TABLET (FP) PO ONE (20:09)
[2022-03-14] MEDS ORDERED: ACETAMINOPHEN 325 MG TABLET (FP) PO PRN (21:22)
[2022-03-14] MEDS ORDERED: hydrALAZINE HCL 50 MG TABLET (FP) ONE (21:49)
[2022-03-14] MEDS ORDERED: ACETAMINOPHEN 325 MG TABLET (FP) ONE (22:27)
[2022-03-14] MEDS ORDERED: HEPARIN NA (PORCINE) 5,000 UNITS/ML 1ML VIAL ONE (22:27)
[2022-03-14] MEDS: HEPARIN NA (PORCINE) 5,000 UNITS/ML 1ML VIAL SQ SCH (22:37)
[2022-03-15] MEDS ORDERED: ACETAMINOPHEN INJECTION 100 ML IVPB ONE ×2 (05:39→12:08)
[2022-03-15] MEDS: ACETAMINOPHEN 1000 MG/100 ML BAG IVPB PRN ×2 (05:40→12:12)
[2022-03-15] MEDS ORDERED: GABAPENTIN 100 MG CAPSULE ONE ×2 (06:10→13:58)
[2022-03-15] MEDS ORDERED: hydrALAZINE HCL 50 MG TABLET (FP) ONE ×2 (06:11→13:58)
[2022-03-15] MEDS ORDERED: HEPARIN NA (PORCINE) 5,000 UNITS/ML 1ML VIAL ONE ×2 (06:11→13:58)
[2022-03-15] MEDS: hydrALAZINE HCL 50 MG TABLET (FP) PO SCH ×3 (06:31→23:13)
[2022-03-15] MEDS: GABAPENTIN 100 MG CAPSULE PO SCH ×3 (06:31→23:13)
[2022-03-15] MEDS: HEPARIN NA (PORCINE) 5,000 UNITS/ML 1ML VIAL SQ SCH ×3 (06:31→23:13)
[2022-03-15 08:00] LABS: HEMATOCRIT 27.3 % (35.4-49); HEMOGLOBIN 9.2 GM/dL (11.7-16.9); MCH 29.7 pg (25.7-33.7); MCHC 33.6 g/dl (32.0-35.9); MEAN CELL VOLUME 88.6 fl (80-96); MEAN PLT VOLUME 7.2 fl (7.5-11.1); PLATELET COUNT 210 10^3/uL (134-434); RBC 3.09 M/mm3 (4.00-5.60); RDW 17.6 % (11.9-15.9); WHITE BLOOD COUNT 9.3 K/mm3 (4.0-10.0)
[2022-03-15 08:44] LABS: CHLORIDE 97 mmol/L (98-107); SODIUM 137 mmol/L (136-145)
[2022-03-15 08:50] LABS: CALCIUM 8.8 mg/dL (8.5-10.1); GLUCOSE,RANDOM 92 mg/dL (74-106)
[2022-03-15 08:51] LABS: ANION GAP 17 MMOL/L (8-16); BLOOD UREA NITROGEN 84.7 mg/dL (7-18); CO2 23 mmol/L (21-32)
[2022-03-15 08:55] LABS: CREATININE 17.3 mg/dL (0.55-1.3)
[2022-03-15] MEDS ORDERED: DIPHTH,PERTUSS(ACELL),TET 0.5 ML DISP.SYRIN IM ONE (10:21)
[2022-03-15] MEDS: ASPIRIN COATED 81 MG TABLET.EC PO SCH (11:10)
[2022-03-15] MEDS: CARVEDILOL 3.125 MG TABLET (FP) PO SCH ×2 (11:10→23:13)
[2022-03-15] MEDS: ISOSORBIDE DINITRATE 10 MG TABLET PO SCH ×3 (11:19→18:35)
[2022-03-15] MEDS: SEVELAMER CARBONATE 2.4 GM POWDER PACKET PO SCH ×4 (11:19→18:35)
[2022-03-15] MEDS ORDERED: ASPIRIN COATED 81 MG TABLET.EC ONE (11:33)
[2022-03-15] MEDS ORDERED: CARVEDILOL 3.125 MG TABLET (FP) ONE (11:33)
[2022-03-15] MEDS ORDERED: CEFEPIME HCL/D5W 2 GM/50 ML BAG IVPB ONE (14:31)
[2022-03-15] MEDS ORDERED: VANCOMYCIN 1 GM in D5W (PRE-DOCKED) 1,000 MG/250 ML IVPB ONE (14:31)
[2022-03-15] MEDS ORDERED: CEFEPIME 2 GM in DEXTROSE 5%-WATER 2 GM/100 ML BAG IVPB ONE (14:59)
[2022-03-15] MEDS ORDERED: CEFEPIME 2 GM/100 ML BAG IVPB ONE (15:06)
[2022-03-15] MEDS ORDERED: SODIUM CHLORIDE 250 ML IV PRN (15:26)
[2022-03-16] MEDS ORDERED: GABAPENTIN 100 MG CAPSULE ONE ×2 (00:07→08:35)
[2022-03-16] MEDS ORDERED: hydrALAZINE HCL 50 MG TABLET (FP) ONE ×2 (00:07→08:35)
[2022-03-16] MEDS ORDERED: HEPARIN NA (PORCINE) 5,000 UNITS/ML 1ML VIAL ONE (00:07)
[2022-03-16] MEDS ORDERED: CARVEDILOL 3.125 MG TABLET (FP) ONE ×2 (00:07→10:33)
[2022-03-16] MEDS: GABAPENTIN 100 MG CAPSULE PO SCH ×3 (08:30→21:14)
[2022-03-16] MEDS: hydrALAZINE HCL 50 MG TABLET (FP) PO SCH ×3 (08:30→21:14)
[2022-03-16] MEDS: SEVELAMER CARBONATE 2.4 GM POWDER PACKET PO SCH ×3 (08:42→19:49)
[2022-03-16] MEDS: ISOSORBIDE DINITRATE 10 MG TABLET PO SCH ×3 (10:29→19:49)
[2022-03-16] MEDS ORDERED: ASPIRIN COATED 81 MG TABLET.EC ONE (10:32)
[2022-03-16] MEDS: HEPARIN NA (PORCINE) 5,000 UNITS/ML 1ML VIAL SQ SCH ×3 (10:41→21:13)
[2022-03-16] MEDS: CARVEDILOL 3.125 MG TABLET (FP) PO SCH ×2 (10:41→21:14)
[2022-03-16] MEDS: ASPIRIN COATED 81 MG TABLET.EC PO SCH (10:41)
[2022-03-16] MEDS ORDERED: HEPARIN NA (PORCINE) 5,000 UNITS/ML 1ML VIAL IVPUSH ONE (12:00)
[2022-03-16] MEDS ORDERED: EPOETIN ALFA-EPBX 4,000 UNIT/ML VIAL IVPUSH ONE (12:00)
[2022-03-16 13:30] LABS: CHLORIDE 100 mmol/L (98-107); SODIUM 138 mmol/L (136-145)
[2022-03-16 13:33] LABS: CALCIUM 8.5 mg/dL (8.5-10.1)
[2022-03-16 13:34] LABS: ANION GAP 9 MMOL/L (8-16); CO2 30 mmol/L (21-32); GLUCOSE,RANDOM 104 mg/dL (74-106)
[2022-03-16 13:37] LABS: HEMATOCRIT 25.5 % (35.4-49); HEMOGLOBIN 8.4 GM/dL (11.7-16.9); MCH 29.5 pg (25.7-33.7); MCHC 33.1 g/dl (32.0-35.9); MEAN PLT VOLUME 7.6 fl (7.5-11.1); PLATELET COUNT 187 10^3/uL (134-434); RBC 2.86 M/mm3 (4.00-5.60); RDW 17.2 % (11.9-15.9); WHITE BLOOD COUNT 6.8 K/mm3 (4.0-10.0)
[2022-03-16 13:38] LABS: BLOOD UREA NITROGEN 51.4 mg/dL (7-18); CREATININE 12.3 mg/dL (0.55-1.3)
[2022-03-16] MEDS ORDERED: PIPERACILLIN/TAZOBACTAM 2.25 GM VIAL IVPB ONE (17:30)
[2022-03-16] MEDS ORDERED: DEXTROSE 5%-WATER - 50 ML IVPB ONE (17:30)
[2022-03-16] MEDS: ACETAMINOPHEN 325 MG TABLET (FP) PO PRN (17:34)
[2022-03-16] MEDS: PIPERACILLIN/TAZOB 2.25 GM 2.25 GM in DEXTROSE 5%-WATER - 50 ML IVPB SCH (17:36)
[2022-03-17] MEDS ORDERED: DEXTROSE 5%-WATER - 50 ML IVPB ONE ×3 (01:38→16:35)
[2022-03-17] MEDS ORDERED: PIPERACILLIN/TAZOBACTAM 2.25 GM VIAL IVPB ONE ×3 (01:38→16:35)
[2022-03-17] MEDS: PIPERACILLIN/TAZOB 2.25 GM 2.25 GM in DEXTROSE 5%-WATER - 50 ML IVPB SCH ×3 (01:49→17:40)
[2022-03-17] MEDS: hydrALAZINE HCL 50 MG TABLET (FP) PO SCH ×3 (05:42→21:33)
[2022-03-17] MEDS: GABAPENTIN 100 MG CAPSULE PO SCH ×3 (05:42→21:33)
[2022-03-17] MEDS: HEPARIN NA (PORCINE) 5,000 UNITS/ML 1ML VIAL SQ SCH ×3 (05:42→21:32)
[2022-03-17] MEDS: SEVELAMER CARBONATE 2.4 GM POWDER PACKET PO SCH ×4 (08:05→17:48)
[2022-03-17] MEDS: ASPIRIN COATED 81 MG TABLET.EC PO SCH (10:55)
[2022-03-17] MEDS: CARVEDILOL 3.125 MG TABLET (FP) PO SCH ×2 (10:55→21:33)
[2022-03-17] MEDS: ISOSORBIDE DINITRATE 10 MG TABLET PO SCH ×3 (10:56→17:42)
[2022-03-17 13:24] LABS: CHLORIDE 100 mmol/L (98-107); SODIUM 142 mmol/L (136-145)
[2022-03-17 13:25] LABS: ANION GAP 9 MMOL/L (8-16); CALCIUM 8.8 mg/dL (8.5-10.1); CO2 33 mmol/L (21-32); GLUCOSE,RANDOM 126 mg/dL (74-106); MAGNESIUM 2.2 mg/dL (1.8-2.4)
[2022-03-17 13:26] LABS: BLOOD UREA NITROGEN 26.7 mg/dL (7-18)
[2022-03-17 13:33] LABS: CREATININE 7.5 mg/dL (0.55-1.3)
[2022-03-17 21:46] LABS: HIV INTERPRETATION NEGATIVE (NEGATIVE)
[2022-03-18] MEDS ORDERED: DEXTROSE 5%-WATER - 50 ML IVPB ONE ×3 (00:18→16:45)
[2022-03-18] MEDS ORDERED: PIPERACILLIN/TAZOBACTAM 2.25 GM VIAL IVPB ONE ×3 (00:18→16:45)
[2022-03-18] MEDS: PIPERACILLIN/TAZOB 2.25 GM 2.25 GM in DEXTROSE 5%-WATER - 50 ML IVPB SCH ×3 (01:54→18:06)
[2022-03-18] MEDS: hydrALAZINE HCL 50 MG TABLET (FP) PO SCH ×3 (06:58→23:06)
[2022-03-18] MEDS: GABAPENTIN 100 MG CAPSULE PO SCH ×3 (06:58→23:06)
[2022-03-18] MEDS: HEPARIN NA (PORCINE) 5,000 UNITS/ML 1ML VIAL SQ SCH ×3 (06:59→23:06)
[2022-03-18] MEDS: SEVELAMER CARBONATE 2.4 GM POWDER PACKET PO SCH ×3 (09:22→16:58)
[2022-03-18] MEDS: ISOSORBIDE DINITRATE 10 MG TABLET PO SCH ×3 (09:22→18:06)
[2022-03-18] MEDS: ASPIRIN COATED 81 MG TABLET.EC PO SCH (09:23)
[2022-03-18] MEDS: CARVEDILOL 3.125 MG TABLET (FP) PO SCH ×2 (09:23→23:06)
[2022-03-18 11:29] LABS: HEMATOCRIT 26.1 % (35.4-49); HEMOGLOBIN 8.6 GM/dL (11.7-16.9); MCH 29.2 pg (25.7-33.7); MCHC 32.7 g/dl (32.0-35.9); MEAN CELL VOLUME 89.4 fl (80-96); MEAN PLT VOLUME 7.1 fl (7.5-11.1); PLATELET COUNT 266 10^3/uL (134-434); RBC 2.92 M/mm3 (4.00-5.60); RDW 17.5 % (11.9-15.9); WHITE BLOOD COUNT 4.7 K/mm3 (4.0-10.0)
[2022-03-18 11:46] LABS: CHLORIDE 101 mmol/L (98-107); SODIUM 140 mmol/L (136-145)
[2022-03-18 11:53] LABS: BLOOD UREA NITROGEN 38.2 mg/dL (7-18); GLUCOSE,RANDOM 127 mg/dL (74-106)
[2022-03-18 11:57] LABS: ALBUMIN 2.6 g/dl (3.4-5.0); ANION GAP 9 MMOL/L (8-16); CALCIUM 8.5 mg/dL (8.5-10.1); CO2 30 mmol/L (21-32)
[2022-03-18 12:00] LABS: SGPT/ALT 10 U/L (13-61)
[2022-03-18 12:01] LABS: BILIRUBIN,TOTAL 0.3 mg/dL (0.2-1); SGOT/AST 5 U/L (15-37); TOT PROT 6.1 g/dl (6.4-8.2)
[2022-03-18 12:02] LABS: ALK PHOS 81 U/L (45-117)
[2022-03-18 12:04] LABS: CREATININE 8.9 mg/dL (0.55-1.3)
[2022-03-18] MEDS: HEPARIN NA (PORCINE) 5,000 UNITS/ML 1ML VIAL IVPUSH ONE ×2 (12:50→15:06)
[2022-03-18] MEDS ORDERED: SODIUM CHLORIDE 250 ML IV PRN (13:50)
[2022-03-18] MEDS: EPOETIN ALFA-EPBX 4,000 UNIT/ML VIAL SQ ONE ×2 (15:07→15:35)
[2022-03-18 16:42] LABS: INR 0.9 (0.83-1.09); PROTHROMBIN TIME (PATIENT) 10.3 SEC (9.7-13.0)
[2022-03-18] MEDS: ACETAMINOPHEN 325 MG TABLET (FP) PO PRN (23:07)
[2022-03-19] MEDS ORDERED: PIPERACILLIN/TAZOBACTAM 2.25 GM VIAL IVPB ONE ×3 (00:04→16:46)
[2022-03-19] MEDS ORDERED: DEXTROSE 5%-WATER - 50 ML IVPB ONE ×3 (00:04→16:46)
[2022-03-19] MEDS: PIPERACILLIN/TAZOB 2.25 GM 2.25 GM in DEXTROSE 5%-WATER - 50 ML IVPB SCH ×3 (01:36→17:10)
[2022-03-19] MEDS: GABAPENTIN 100 MG CAPSULE PO SCH ×3 (07:00→21:08)
[2022-03-19] MEDS: hydrALAZINE HCL 50 MG TABLET (FP) PO SCH ×3 (07:00→21:08)
[2022-03-19] MEDS: HEPARIN NA (PORCINE) 5,000 UNITS/ML 1ML VIAL SQ SCH ×3 (07:01→21:07)
[2022-03-19 08:32] LABS: HEMATOCRIT 26.2 % (35.4-49); HEMOGLOBIN 8.6 GM/dL (11.7-16.9); MCH 29.7 pg (25.7-33.7); MEAN PLT VOLUME 7.2 fl (7.5-11.1); PLATELET COUNT 303 10^3/uL (134-434); RBC 2.91 M/mm3 (4.00-5.60); RDW 17.7 % (11.9-15.9); WHITE BLOOD COUNT 4.7 K/mm3 (4.0-10.0)
[2022-03-19 08:54] LABS: ALBUMIN 2.6 g/dl (3.4-5.0); BLOOD UREA NITROGEN 27.3 mg/dL (7-18); MAGNESIUM 2.1 mg/dL (1.8-2.4)
[2022-03-19 08:57] LABS: CREATININE 6.5 mg/dL (0.55-1.3); PHOSPHOROUS 4.6 mg/dL (2.5-4.9)
[2022-03-19 08:59] LABS: BILIRUBIN,TOTAL 0.3 mg/dL (0.2-1); TOT PROT 6.4 g/dl (6.4-8.2)
[2022-03-19] MEDS: CARVEDILOL 3.125 MG TABLET (FP) PO SCH ×2 (10:22→21:08)
[2022-03-19] MEDS: ASPIRIN COATED 81 MG TABLET.EC PO SCH (10:22)
[2022-03-19] MEDS: ISOSORBIDE DINITRATE 10 MG TABLET PO SCH ×3 (10:29→17:10)
[2022-03-19] MEDS: SEVELAMER CARBONATE 2.4 GM POWDER PACKET PO SCH ×3 (10:29→16:44)
[2022-03-19 10:38] LABS: ANISOCYTOSIS 2+; MACROCYTOSIS 1+
[2022-03-19] MEDS ORDERED: LIDOCAINE HCL 1%, 10 MG/ML (20ML VIAL) INF ONE (14:45)
[2022-03-19] MEDS: ACETAMINOPHEN 325 MG TABLET (FP) PO PRN (19:45)
[2022-03-20] MEDS ORDERED: PIPERACILLIN/TAZOBACTAM 2.25 GM VIAL IVPB ONE ×3 (00:47→17:54)
[2022-03-20] MEDS ORDERED: DEXTROSE 5%-WATER - 50 ML IVPB ONE ×3 (00:47→17:54)
[2022-03-20] MEDS: PIPERACILLIN/TAZOB 2.25 GM 2.25 GM in DEXTROSE 5%-WATER - 50 ML IVPB SCH ×3 (01:21→18:20)
[2022-03-20] MEDS: GABAPENTIN 100 MG CAPSULE PO SCH ×3 (06:01→21:54)
[2022-03-20] MEDS: HEPARIN NA (PORCINE) 5,000 UNITS/ML 1ML VIAL SQ SCH ×3 (06:01→21:54)
[2022-03-20] MEDS: hydrALAZINE HCL 50 MG TABLET (FP) PO SCH ×3 (06:01→21:54)
[2022-03-20 08:16] LABS: HEMATOCRIT 25.8 % (35.4-49); HEMOGLOBIN 8.6 GM/dL (11.7-16.9); MCHC 33.3 g/dl (32.0-35.9); MEAN CELL VOLUME 90.1 fl (80-96); MEAN PLT VOLUME 7.3 fl (7.5-11.1); PLATELET COUNT 338 10^3/uL (134-434); RBC 2.87 M/mm3 (4.00-5.60); RDW 17.5 % (11.9-15.9); WHITE BLOOD COUNT 5.5 K/mm3 (4.0-10.0)
[2022-03-20 08:18] LABS: CHLORIDE 100 mmol/L (98-107); SODIUM 140 mmol/L (136-145)
[2022-03-20 08:25] LABS: ANION GAP 9 MMOL/L (8-16); CALCIUM 9.1 mg/dL (8.5-10.1); CO2 31 mmol/L (21-32); GLUCOSE,RANDOM 85 mg/dL (74-106)
[2022-03-20 08:26] LABS: ALBUMIN 2.5 g/dl (3.4-5.0); BLOOD UREA NITROGEN 41.7 mg/dL (7-18); MAGNESIUM 2.1 mg/dL (1.8-2.4)
[2022-03-20 08:28] LABS: SGOT/AST 12 U/L (15-37); SGPT/ALT 18 U/L (13-61)
[2022-03-20 08:29] LABS: PHOSPHOROUS 4.8 mg/dL (2.5-4.9)
[2022-03-20 08:30] LABS: BILIRUBIN,TOTAL 0.5 mg/dL (0.2-1)
[2022-03-20 08:31] LABS: ALK PHOS 90 U/L (45-117)
[2022-03-20 08:37] LABS: CREATININE 8.4 mg/dL (0.55-1.3)
[2022-03-20] MEDS: ISOSORBIDE DINITRATE 10 MG TABLET PO SCH ×3 (09:08→18:21)
[2022-03-20] MEDS: SEVELAMER CARBONATE 2.4 GM POWDER PACKET PO SCH ×4 (09:08→18:01)
[2022-03-20] MEDS: ASPIRIN COATED 81 MG TABLET.EC PO SCH (09:09)
[2022-03-20] MEDS: CARVEDILOL 3.125 MG TABLET (FP) PO SCH ×2 (09:09→21:54)
[2022-03-20 10:16] LABS: ANISOCYTOSIS 0; HELMET CELLS 0; HOWELL-JOLLY BODIES 0; MACROCYTOSIS 0; OVALOCYTE 0; ROULEAU 0; SICKELED CELLS 0; TARGET CELLS 0; TEAR DROP CELLS 0; TOXIC GRANULATION 0
[2022-03-21] MEDS ORDERED: PIPERACILLIN/TAZOBACTAM 2.25 GM VIAL IVPB ONE (02:00)
[2022-03-21] MEDS ORDERED: DEXTROSE 5%-WATER - 50 ML IVPB ONE (02:00)
[2022-03-21] MEDS: PIPERACILLIN/TAZOB 2.25 GM 2.25 GM in DEXTROSE 5%-WATER - 50 ML IVPB SCH ×2 (02:39→10:02)
[2022-03-21] MEDS: GABAPENTIN 100 MG CAPSULE PO SCH ×3 (06:46→23:21)
[2022-03-21] MEDS: HEPARIN NA (PORCINE) 5,000 UNITS/ML 1ML VIAL SQ SCH ×4 (06:46→23:28)
[2022-03-21] MEDS: hydrALAZINE HCL 50 MG TABLET (FP) PO SCH ×3 (06:46→23:21)
[2022-03-21] MEDS ORDERED: EPOETIN ALFA-EPBX 4,000 UNIT/ML VIAL IVPUSH ONE (08:30)
[2022-03-21] MEDS: SEVELAMER CARBONATE 2.4 GM POWDER PACKET PO SCH ×3 (08:38→16:45)
[2022-03-21] MEDS: ISOSORBIDE DINITRATE 10 MG TABLET PO SCH ×4 (08:38→17:33)
[2022-03-21 09:29] LABS: HEMATOCRIT 25.5 % (35.4-49); HEMOGLOBIN 8.4 GM/dL (11.7-16.9); MCH 29.6 pg (25.7-33.7); MCHC 32.9 g/dl (32.0-35.9); MEAN PLT VOLUME 6.9 fl (7.5-11.1); PLATELET COUNT 379 10^3/uL (134-434); RBC 2.83 M/mm3 (4.00-5.60); RDW 17.6 % (11.9-15.9); WHITE BLOOD COUNT 6.5 K/mm3 (4.0-10.0)
[2022-03-21 09:53] LABS: CHLORIDE 98 mmol/L (98-107); SODIUM 137 mmol/L (136-145)
[2022-03-21 10:21] LABS: ALK PHOS 90 U/L (45-117)
[2022-03-21 10:22] LABS: BILIRUBIN,TOTAL 0.3 mg/dL (0.2-1); TOT PROT 6.1 g/dl (6.4-8.2)
[2022-03-21 10:25] LABS: ALBUMIN 2.6 g/dl (3.4-5.0); ANION GAP 13 MMOL/L (8-16); BLOOD UREA NITROGEN 52.9 mg/dL (7-18); CO2 26 mmol/L (21-32)
[2022-03-21 10:26] LABS: ANISOCYTOSIS 3+; MACROCYTOSIS 0
[2022-03-21 10:28] LABS: SGOT/AST 10 U/L (15-37)
[2022-03-21 10:29] LABS: SGPT/ALT 17 U/L (13-61)
[2022-03-21 11:08] LABS: CREATININE 10.3 mg/dL (0.55-1.3); GLUCOSE,RANDOM 145 mg/dL (74-106)
[2022-03-21] MEDS: CARVEDILOL 3.125 MG TABLET (FP) PO SCH ×2 (12:41→23:21)
[2022-03-21] MEDS: ASPIRIN COATED 81 MG TABLET.EC PO SCH (12:41)
[2022-03-21] MEDS ORDERED: MEROPENEM 1 GM in DEXTROSE 5%-WATER 100 ML IVPB SCH ×2 (15:00→16:00)
[2022-03-21] MEDS ORDERED: DEXTROSE 5%-WATER 100 ML IVPB ONE (16:03)
[2022-03-21] MEDS ORDERED: MEROPENEM 1 GM VIAL (RESTRICTED TO ID) IVPB ONE (16:03)
[2022-03-22] MEDS: hydrALAZINE HCL 50 MG TABLET (FP) PO SCH ×3 (06:56→21:45)
[2022-03-22] MEDS: HEPARIN NA (PORCINE) 5,000 UNITS/ML 1ML VIAL SQ SCH ×3 (06:56→21:46)
[2022-03-22] MEDS: GABAPENTIN 100 MG CAPSULE PO SCH ×3 (06:56→21:46)
[2022-03-22 09:06] LABS: HEMATOCRIT 25.2 % (35.4-49); HEMOGLOBIN 8.6 GM/dL (11.7-16.9); MCH 31.6 pg (25.7-33.7); MEAN CELL VOLUME 92.7 fl (80-96); MEAN PLT VOLUME 6.9 fl (7.5-11.1); PLATELET COUNT 381 10^3/uL (134-434); RBC 2.72 M/mm3 (4.00-5.60); RDW 17.8 % (11.9-15.9); WHITE BLOOD COUNT 7.9 K/mm3 (4.0-10.0)
[2022-03-22] MEDS: ASPIRIN COATED 81 MG TABLET.EC PO SCH (09:38)
[2022-03-22] MEDS: CARVEDILOL 3.125 MG TABLET (FP) PO SCH ×2 (09:38→21:46)
[2022-03-22] MEDS: ISOSORBIDE DINITRATE 10 MG TABLET PO SCH ×3 (09:39→17:52)
[2022-03-22] MEDS: SEVELAMER CARBONATE 2.4 GM POWDER PACKET PO SCH ×3 (09:39→17:01)
[2022-03-22 09:54] LABS: ANISOCYTOSIS 1+; MACROCYTOSIS 1+
[2022-03-22 09:57] LABS: ALBUMIN 2.7 g/dl (3.4-5.0); BLOOD UREA NITROGEN 36.3 mg/dL (7-18); CALCIUM 9.2 mg/dL (8.5-10.1)
[2022-03-22 09:58] LABS: MAGNESIUM 2.2 mg/dL (1.8-2.4)
[2022-03-22 09:59] LABS: CREATININE 7.1 mg/dL (0.55-1.3); PHOSPHOROUS 6.9 mg/dL (2.5-4.9)
[2022-03-22 10:02] LABS: BILIRUBIN,TOTAL 0.3 mg/dL (0.2-1); TOT PROT 6.3 g/dl (6.4-8.2)
[2022-03-22] MEDS: MEROPENEM 1 GM in DEXTROSE 5%-WATER 100 ML IVPB SCH (14:52)
[2022-03-22] MEDS ORDERED: MEROPENEM 500 MG VIAL (RESTRICTED TO ID) IVPB ONE (14:53)
[2022-03-22] MEDS ORDERED: DEXTROSE 5%-WATER 100 ML IVPB ONE (14:53)
[2022-03-22] MEDS: MEROPENEM 500 MG in DEXTROSE 5%-WATER 100 ML IVPB SCH (15:24)
[2022-03-22] MEDS ORDERED: ALBUTEROL SO4 HFA INHALER IH PRN (23:06)
[2022-03-23] MEDS: hydrALAZINE HCL 50 MG TABLET (FP) PO SCH ×3 (05:27→23:00)
[2022-03-23] MEDS: GABAPENTIN 100 MG CAPSULE PO SCH ×3 (05:28→23:16)
[2022-03-23] MEDS: HEPARIN NA (PORCINE) 5,000 UNITS/ML 1ML VIAL SQ SCH ×3 (05:28→23:16)
[2022-03-23] MEDS ORDERED: HEPARIN NA (PORCINE) 5,000 UNITS/ML 1ML VIAL IVPUSH ONE (08:30)
[2022-03-23 08:56] LABS: HEMATOCRIT 25.6 % (35.4-49); HEMOGLOBIN 8.5 GM/dL (11.7-16.9); MCH 29.9 pg (25.7-33.7); MCHC 33.1 g/dl (32.0-35.9); MEAN CELL VOLUME 90.2 fl (80-96); MEAN PLT VOLUME 6.9 fl (7.5-11.1); PLATELET COUNT 428 10^3/uL (134-434); RBC 2.84 M/mm3 (4.00-5.60); RDW 17.6 % (11.9-15.9); WHITE BLOOD COUNT 8.5 K/mm3 (4.0-10.0)
[2022-03-23] MEDS: CARVEDILOL 3.125 MG TABLET (FP) PO SCH ×2 (09:28→23:12)
[2022-03-23] MEDS: SEVELAMER CARBONATE 2.4 GM POWDER PACKET PO SCH ×3 (09:28→17:12)
[2022-03-23] MEDS: ISOSORBIDE DINITRATE 10 MG TABLET PO SCH ×3 (09:28→17:12)
[2022-03-23] MEDS: ASPIRIN COATED 81 MG TABLET.EC PO SCH (09:29)
[2022-03-23 09:50] LABS: CHLORIDE 100 mmol/L (98-107); SODIUM 139 mmol/L (136-145)
[2022-03-23] MEDS ORDERED: MEROPENEM 500 MG VIAL (RESTRICTED TO ID) IVPB ONE (09:59)
[2022-03-23] MEDS ORDERED: DEXTROSE 5%-WATER 100 ML IVPB ONE (09:59)
[2022-03-23 10:00] LABS: ANISOCYTOSIS 0; HELMET CELLS 0; HOWELL-JOLLY BODIES 0; MACROCYTOSIS 0; OVALOCYTE 0; ROULEAU 0; SICKELED CELLS 0; TARGET CELLS 0; TEAR DROP CELLS 0; TOXIC GRANULATION 0
[2022-03-23] MEDS ORDERED: EPOETIN ALFA-EPBX 4,000 UNIT/ML VIAL SQ ONE (10:00)
[2022-03-23] MEDS ORDERED: SODIUM CHLORIDE 250 ML IV PRN (10:00)
[2022-03-23 10:02] LABS: CHLORIDE 100 mmol/L (98-107); SODIUM 139 mmol/L (136-145)
[2022-03-23 10:06] LABS: ANION GAP 10 MMOL/L (8-16); BLOOD UREA NITROGEN 53.3 mg/dL (7-18); CALCIUM 9.2 mg/dL (8.5-10.1); CO2 28 mmol/L (21-32); GLUCOSE,RANDOM 82 mg/dL (74-106)
[2022-03-23 10:32] LABS: CREATININE 9.2 mg/dL (0.55-1.3)
[2022-03-23 10:52] LABS: ALBUMIN 2.8 g/dl (3.4-5.0); ANION GAP 11 MMOL/L (8-16); BLOOD UREA NITROGEN 53.8 mg/dL (7-18); CALCIUM 9.3 mg/dL (8.5-10.1); CO2 28 mmol/L (21-32)
[2022-03-23 10:53] LABS: GLUCOSE,RANDOM 84 mg/dL (74-106); MAGNESIUM 2.5 mg/dL (1.8-2.4)
[2022-03-23 10:55] LABS: PHOSPHOROUS 7.8 mg/dL (2.5-4.9); SGOT/AST 11 U/L (15-37); SGPT/ALT 17 U/L (13-61)
[2022-03-23 10:57] LABS: BILIRUBIN,TOTAL 0.3 mg/dL (0.2-1); TOT PROT 6.3 g/dl (6.4-8.2)
[2022-03-23 10:58] LABS: ALK PHOS 97 U/L (45-117)
[2022-03-23 11:00] LABS: CREATININE 9.1 mg/dL (0.55-1.3)
[2022-03-23] MEDS: MEROPENEM 500 MG in DEXTROSE 5%-WATER 100 ML IVPB SCH (12:51)
[2022-03-24] MEDS: HEPARIN NA (PORCINE) 5,000 UNITS/ML 1ML VIAL SQ SCH ×3 (06:56→22:51)
[2022-03-24] MEDS: GABAPENTIN 100 MG CAPSULE PO SCH ×3 (06:57→22:50)
[2022-03-24] MEDS: hydrALAZINE HCL 50 MG TABLET (FP) PO SCH ×3 (06:57→22:51)
[2022-03-24] MEDS ORDERED: MEROPENEM 500 MG VIAL (RESTRICTED TO ID) IVPB ONE (09:06)
[2022-03-24] MEDS ORDERED: DEXTROSE 5%-WATER 100 ML IVPB ONE (09:07)
[2022-03-24 09:11] LABS: HEMATOCRIT 26.1 % (35.4-49); HEMOGLOBIN 8.6 GM/dL (11.7-16.9); MCH 29.9 pg (25.7-33.7); MCHC 32.9 g/dl (32.0-35.9); MEAN CELL VOLUME 90.8 fl (80-96); MEAN PLT VOLUME 6.8 fl (7.5-11.1); PLATELET COUNT 405 10^3/uL (134-434); RBC 2.87 M/mm3 (4.00-5.60); RDW 17.5 % (11.9-15.9); WHITE BLOOD COUNT 7.7 K/mm3 (4.0-10.0)
[2022-03-24 09:39] LABS: BLOOD UREA NITROGEN 36.3 mg/dL (7-18); TOT PROT 6.4 g/dl (6.4-8.2)
[2022-03-24 09:41] LABS: ANISOCYTOSIS 0; HELMET CELLS 0; HOWELL-JOLLY BODIES 0; MACROCYTOSIS 0; OVALOCYTE 0; PHOSPHOROUS 7.6 mg/dL (2.5-4.9); ROULEAU 0; SICKELED CELLS 0; TARGET CELLS 0; TEAR DROP CELLS 0; TOXIC GRANULATION 0
[2022-03-24 09:43] LABS: ALBUMIN 2.8 g/dl (3.4-5.0); CALCIUM 9.3 mg/dL (8.5-10.1); MAGNESIUM 2.3 mg/dL (1.8-2.4)
[2022-03-24 09:52] LABS: BILIRUBIN,TOTAL 0.3 mg/dL (0.2-1)
[2022-03-24] MEDS: SEVELAMER CARBONATE 2.4 GM POWDER PACKET PO SCH ×3 (10:06→17:45)
[2022-03-24] MEDS: ISOSORBIDE DINITRATE 10 MG TABLET PO SCH ×3 (10:08→17:46)
[2022-03-24] MEDS: ASPIRIN COATED 81 MG TABLET.EC PO SCH (10:09)
[2022-03-24] MEDS: MEROPENEM 500 MG in DEXTROSE 5%-WATER 100 ML IVPB SCH (10:09)
[2022-03-24] MEDS: CARVEDILOL 6.25 MG TABLET (FP) PO SCH ×2 (10:10→22:50)
[2022-03-25] MEDS: HEPARIN NA (PORCINE) 5,000 UNITS/ML 1ML VIAL SQ SCH ×2 (06:49→13:03)
[2022-03-25] MEDS: GABAPENTIN 100 MG CAPSULE PO SCH (06:49)
[2022-03-25] MEDS: hydrALAZINE HCL 50 MG TABLET (FP) PO SCH ×2 (06:49→13:03)
[2022-03-25] MEDS ORDERED: SODIUM CHLORIDE 250 ML IV PRN (07:30)
[2022-03-25] MEDS ORDERED: EPOETIN ALFA-EPBX 10,000 UNIT/ML VIAL SQ ONE (07:30)
[2022-03-25] MEDS: SEVELAMER CARBONATE 2.4 GM POWDER PACKET PO SCH ×2 (08:24→12:36)
[2022-03-25] MEDS: ISOSORBIDE DINITRATE 10 MG TABLET PO SCH ×2 (08:24→13:03)
[2022-03-25 09:07] VITALS: TEMP 98.8
[2022-03-25] MEDS: CARVEDILOL 6.25 MG TABLET (FP) PO SCH (10:09)
[2022-03-25 10:38] LABS: HEMATOCRIT 25.1 % (35.4-49); HEMOGLOBIN 8.3 GM/dL (11.7-16.9); MCH 30.1 pg (25.7-33.7); MCHC 32.9 g/dl (32.0-35.9); MEAN CELL VOLUME 91.4 fl (80-96); MEAN PLT VOLUME 6.7 fl (7.5-11.1); PLATELET COUNT 415 10^3/uL (134-434); RBC 2.75 M/mm3 (4.00-5.60); RDW 18.6 % (11.9-15.9); WHITE BLOOD COUNT 7.6 K/mm3 (4.0-10.0)
[2022-03-25 11:05] LABS: CHLORIDE 100 mmol/L (98-107); SODIUM 142 mmol/L (136-145)
[2022-03-25 11:09] LABS: ANION GAP 13 MMOL/L (8-16); BLOOD UREA NITROGEN 57.1 mg/dL (7-18); CALCIUM 8.9 mg/dL (8.5-10.1); CO2 28 mmol/L (21-32); MAGNESIUM 2.4 mg/dL (1.8-2.4)
[2022-03-25 11:10] LABS: GLUCOSE,RANDOM 114 mg/dL (74-106)
[2022-03-25 11:13] LABS: CREATININE 9.3 mg/dL (0.55-1.3); PHOSPHOROUS 8.9 mg/dL (2.5-4.9)
[2022-03-25] MEDS ORDERED: MEROPENEM 500 MG VIAL (RESTRICTED TO ID) IVPB ONE (12:08)
[2022-03-25] MEDS ORDERED: DEXTROSE 5%-WATER 100 ML IVPB ONE (12:08)
[2022-03-25 12:13] VITALS: BP 155/90; PULSE 88
[2022-03-25] MEDS: MEROPENEM 500 MG in DEXTROSE 5%-WATER 100 ML IVPB SCH (12:36)
[2022-03-25] MEDS: ASPIRIN COATED 81 MG TABLET.EC PO SCH (12:36)
== END 2022-03-25 13:44 | disposition left against medical advice (07) | DRG 871 ==
LOC: JER 13:41 → JERBED 17:01 → J7W 03-16 16:17
PROVIDERS: ADMIT Internal Medicine; ATTEND Internal Medicine
PROC: 5A1D70Z Performance of Urinary Filtration, Intermittent, Less than 6 Hours Per Day (ICD-10-PCS; principal; 2022-03-14)
DX: A41.50 Gram-negative sepsis, unspecified (principal); N18.6 End stage renal disease; J96.21 Acute and chronic respiratory failure with hypoxia; I12.0 Hypertensive chronic kidney disease with stage 5 chronic kidney disease or end stage renal disease; I69.354 Hemiplegia and hemiparesis following cerebral infarction affecting left non-dominant side; I13.2 Hypertensive heart and chronic kidney disease with heart failure and with stage 5 chronic kidney disease, or end stage renal disease; I50.22 Chronic systolic (congestive) heart failure; J44.9 Chronic obstructive pulmonary disease, unspecified; Z99.81 Dependence on supplemental oxygen; Z99.2 Dependence on renal dialysis; E78.5 Hyperlipidemia, unspecified; Z86.16 Personal history of COVID-19; E87.5 Hyperkalemia; N62 Hypertrophy of breast; D63.1 Anemia in chronic kidney disease; E83.39 Other disorders of phosphorus metabolism; R59.0 Localized enlarged lymph nodes; H53.8 Other visual disturbances; I73.9 Peripheral vascular disease, unspecified; Z53.29 Procedure and treatment not carried out because of patient's decision for other reasons
CPT/HCPCS: 0241U-QW; 36415; 70450-TC; 71045-TC-FY; 71046-TC-FY; 80048; 80053; 82728; 83540; 83550; 83605; 83735; 84100; 85025; 85027; 85045; 85610; 86705; 86780; 86803; 87040; 87186; 87340; 87389; 87517; 93005; 93010; 93306-TC; 97116-GP; 97161-GP; 99285-25; C9803-CS; J1644; Q5106; U0003; U0005

== ENCOUNTER 2022-07-23 21:16 | Inpatient (IN) | payer SELFPAY ==
[2022-07-23] MEDS ORDERED: amLODIPine BESYLATE 10 MG TABLET (FP) PO ONE (22:41)
[2022-07-23] MEDS ORDERED: hydrALAZINE HCL 50 MG TABLET (FP) PO ONE (22:42)
[2022-07-23] MEDS ORDERED: CARVEDILOL 25 MG TABLET (FP) PO ONE (22:42)
[2022-07-23 22:48] LABS: HEMATOCRIT 32.1 % (35.4-49); HEMOGLOBIN 10.9 GM/dL (11.7-16.9); MCH 29.9 pg (25.7-33.7); MEAN CELL VOLUME 88.1 fl (80-96); MEAN PLT VOLUME 6.9 fl (7.5-11.1); PLATELET COUNT 259 10^3/uL (134-434); RBC 3.64 M/mm3 (4.00-5.60); RDW 16.4 % (11.9-15.9); WHITE BLOOD COUNT 6.5 K/mm3 (4.0-10.0)
[2022-07-23] MEDS ORDERED: amLODIPine BESYLATE 10 MG TABLET (FP) ONE (22:48)
[2022-07-23] MEDS ORDERED: hydrALAZINE HCL 50 MG TABLET (FP) ONE (22:49)
[2022-07-23] MEDS ORDERED: CARVEDILOL 25 MG TABLET (FP) ONE (22:49)
[2022-07-23 22:54] LABS: INR 0.93 (0.83-1.09); PROTHROMBIN TIME (PATIENT) 10.7 SEC (9.7-13.0)
[2022-07-23 22:56] LABS: ACTIVATED PTT 31.4 SECONDS (25.2-36.5)
[2022-07-23 23:21] LABS: ALK PHOS 134 U/L (45-117); ANION GAP 10 MMOL/L (8-16); BILIRUBIN,TOTAL 0.4 mg/dL (0.2-1); BLOOD UREA NITROGEN 79.3 mg/dL (7-18); CALCIUM 8.6 mg/dL (8.5-10.1); CHLORIDE 101 mmol/L (98-107); CO2 25 mmol/L (21-32); CREATININE 14.9 mg/dL (0.55-1.3); GLUCOSE,RANDOM 93 mg/dL (74-106); MAGNESIUM 3.1 mg/dL (1.8-2.4); PHOSPHOROUS 5.2 mg/dL (2.5-4.9); SGOT/AST 23 U/L (15-37); SGPT/ALT 17 U/L (13-61); SODIUM 136 mmol/L (136-145); TOT PROT 7.1 g/dl (6.4-8.2)
[2022-07-24 00:08] LABS: CHLORIDE 101 mmol/L (98-107); SODIUM 138 mmol/L (136-145)
[2022-07-24 00:10] LABS: CALCIUM 8.5 mg/dL (8.5-10.1)
[2022-07-24] MEDS ORDERED: INSULIN REGULAR HUMAN 100 UNITS/ML *VIAL IVPUSH ONE ×3 (00:10→11:51)
[2022-07-24] MEDS ORDERED: FUROSEMIDE 40 MG/4 ML INJECTABLE VIAL IVPUSH ONE (00:10)
[2022-07-24 00:11] LABS: ALBUMIN 3.1 g/dl (3.4-5.0); ANION GAP 12 MMOL/L (8-16); BLOOD UREA NITROGEN 82.2 mg/dL (7-18); CO2 25 mmol/L (21-32); GLUCOSE,RANDOM 114 mg/dL (74-106)
[2022-07-24] MEDS ORDERED: DEXTROSE 50%-WATER - 25 GM/50 ML VIAL IVPUSH ONE ×3 (00:11→11:51)
[2022-07-24] MEDS ORDERED: CALCIUM GLUC IN NACL, ISO-OSM 1 GM/50 ML BAG IVPB ONE ×2 (00:11→01:24)
[2022-07-24 00:14] LABS: SGOT/AST 17 U/L (15-37); SGPT/ALT 17 U/L (13-61)
[2022-07-24 00:15] LABS: BILIRUBIN,TOTAL 0.4 mg/dL (0.2-1); TOT PROT 6.8 g/dl (6.4-8.2)
[2022-07-24 00:16] LABS: ALK PHOS 135 U/L (45-117); CREATININE 14.8 mg/dL (0.55-1.3)
[2022-07-24] MEDS ORDERED: FUROSEMIDE 40 MG/4 ML INJECTABLE VIAL ONE (00:51)
[2022-07-24 01:20] LABS: CHLORIDE 102 mmol/L (98-107); SODIUM 138 mmol/L (136-145)
[2022-07-24 01:22] LABS: ANION GAP 12 MMOL/L (8-16); BLOOD UREA NITROGEN 80.7 mg/dL (7-18); CALCIUM 8.2 mg/dL (8.5-10.1); CO2 24 mmol/L (21-32); GLUCOSE,RANDOM 110 mg/dL (74-106)
[2022-07-24] MEDS ORDERED: DEXTROSE 50%-WATER 25 GM/50 ML DISP.SYRIN ONE ×3 (01:24→13:06)
[2022-07-24] MEDS ORDERED: INSULIN REGULAR HUMAN 100 UNITS/ML *VIAL ONE ×2 (01:25→13:07)
[2022-07-24 01:27] LABS: CREATININE 14.9 mg/dL (0.55-1.3)
[2022-07-24 04:00] LABS: CHLORIDE 103 mmol/L (98-107); SODIUM 139 mmol/L (136-145)
[2022-07-24 04:01] LABS: CALCIUM 8.4 mg/dL (8.5-10.1)
[2022-07-24 04:02] LABS: ANION GAP 12 MMOL/L (8-16); BLOOD UREA NITROGEN 83.3 mg/dL (7-18); CO2 24 mmol/L (21-32); GLUCOSE,RANDOM 175 mg/dL (74-106)
[2022-07-24] MEDS ORDERED: hydrALAZINE HCL 50 MG TABLET (FP) ONE (05:20)
[2022-07-24] MEDS: HEPARIN NA (PORCINE) 5,000 UNITS/ML 1ML VIAL SQ SCH ×2 (05:27→22:24)
[2022-07-24] MEDS: hydrALAZINE HCL 50 MG TABLET (FP) PO SCH ×2 (05:27→22:23)
[2022-07-24 06:17] LABS: CREATININE 14.9 mg/dL (0.55-1.3)
[2022-07-24] MEDS ORDERED: PANTOPRAZOLE 40 MG TABLET PO ONE (08:54)
[2022-07-24] MEDS ORDERED: CARVEDILOL 3.125 MG TABLET (FP) ONE (08:55)
[2022-07-24] MEDS ORDERED: ASPIRIN 81 MG CHEWABLE TABLETS ONE (08:55)
[2022-07-24] MEDS ORDERED: amLODIPine BESYLATE 5 MG TABLET (FP) ONE (08:55)
[2022-07-24] MEDS ORDERED: CEFTRIAXONE 2 GM/100 ML BAG IVPB ONE (08:56)
[2022-07-24] MEDS: CARVEDILOL 3.125 MG TABLET (FP) PO SCH ×2 (09:13→22:24)
[2022-07-24] MEDS: amLODIPine BESYLATE 5 MG TABLET (FP) PO SCH (09:13)
[2022-07-24] MEDS: PANTOPRAZOLE 40 MG TABLET PO SCH (09:13)
[2022-07-24] MEDS: SEVELAMER CARBONATE 800 MG TAB (FP) PO SCH (09:13)
[2022-07-24] MEDS: ISOSORBIDE DINITRATE 10 MG TABLET PO SCH ×2 (09:13→13:52)
[2022-07-24] MEDS: ASPIRIN COATED 81 MG TABLET.EC PO SCH (09:13)
[2022-07-24] MEDS: CINACALCET HCL 30 MG TAB (FP) PO SCH (09:13)
[2022-07-24 11:20] LABS: ANION GAP 14 MMOL/L (8-16); BLOOD UREA NITROGEN 84.8 mg/dL (7-18); CALCIUM 8.5 mg/dL (8.5-10.1); CHLORIDE 104 mmol/L (98-107); CO2 20 mmol/L (21-32); CREATININE 15.2 mg/dL (0.55-1.3); GLUCOSE,RANDOM 88 mg/dL (74-106); MAGNESIUM 2.9 mg/dL (1.8-2.4); PHOSPHOROUS 4.9 mg/dL (2.5-4.9); SODIUM 138 mmol/L (136-145)
[2022-07-24] MEDS ORDERED: CALCIUM GLUCONATE 10% - 1,000 MG/10 ML VIAL IVPB ONE (11:51)
[2022-07-24] MEDS ORDERED: SODIUM BICARBONATE 8.4% 50 MEQ/50 ML DISP.SYRIN IVPUSH ONE (11:51)
[2022-07-24] MEDS ORDERED: ALBUTEROL SO4 0.083% IH SOL 2.5 MG/3 ML VIAL.NEB. NEB PRN (11:51)
[2022-07-24] MEDS ORDERED: SODIUM CHLORIDE 250 ML IV PRN (11:53)
[2022-07-24] MEDS ORDERED: SODIUM ZIRCONIUM CYCLOSILICATE (LOKELMA) 5 GM PACKET ONE ×2 (13:06→13:42)
[2022-07-24] MEDS ORDERED: CALCIUM GLUCONATE 10% - 1,000 MG/10 ML VIAL ONE (13:06)
[2022-07-24] MEDS ORDERED: SODIUM BICARBONATE 8.4% - 50 ML ONE (13:07)
[2022-07-24] MEDS: SODIUM ZIRCONIUM CYCLOSILICATE (LOKELMA) 5 GM PACKET PO SCH (13:30)
[2022-07-24] MEDS ORDERED: cefTRIAXone SODIUM 1 GM VIAL ONE (13:44)
[2022-07-25] MEDS ORDERED: ONDANSETRON 4 MG TABLET PO ONE (03:17)
[2022-07-25] MEDS ORDERED: TRIMETHOBENZAMIDE HCL 200MG/2ML INJ IM ONE (03:19)
[2022-07-25] MEDS: ISOSORBIDE DINITRATE 10 MG TABLET PO SCH ×4 (09:36→20:05)
[2022-07-25] MEDS: SEVELAMER CARBONATE 800 MG TAB (FP) PO SCH ×3 (09:36→20:04)
[2022-07-25 09:45] LABS: HEMATOCRIT 30.9 % (35.4-49); HEMOGLOBIN 10.4 GM/dL (11.7-16.9); MCH 29.6 pg (25.7-33.7); MCHC 33.6 g/dl (32.0-35.9); MEAN PLT VOLUME 6.6 fl (7.5-11.1); PLATELET COUNT 226 10^3/uL (134-434); RBC 3.52 M/mm3 (4.00-5.60); RDW 16.4 % (11.9-15.9); WHITE BLOOD COUNT 5.6 K/mm3 (4.0-10.0)
[2022-07-25 09:55] LABS: CHLORIDE 101 mmol/L (98-107); SODIUM 142 mmol/L (136-145)
[2022-07-25 09:57] LABS: ANION GAP 7 MMOL/L (8-16); CALCIUM 8.4 mg/dL (8.5-10.1); CO2 34 mmol/L (21-32); GLUCOSE,RANDOM 94 mg/dL (74-106)
[2022-07-25 10:01] LABS: BLOOD UREA NITROGEN 37.6 mg/dL (7-18); CREATININE 10.1 mg/dL (0.55-1.3)
[2022-07-25] MEDS: amLODIPine BESYLATE 5 MG TABLET (FP) PO SCH (10:36)
[2022-07-25] MEDS: ASPIRIN COATED 81 MG TABLET.EC PO SCH (10:36)
[2022-07-25] MEDS: CINACALCET HCL 30 MG TAB (FP) PO SCH (10:36)
[2022-07-25] MEDS: CARVEDILOL 3.125 MG TABLET (FP) PO SCH ×2 (10:36→21:34)
[2022-07-25] MEDS: PANTOPRAZOLE 40 MG TABLET PO SCH (10:36)
[2022-07-25] MEDS: SODIUM ZIRCONIUM CYCLOSILICATE (LOKELMA) 5 GM PACKET PO SCH (10:36)
[2022-07-25] MEDS ORDERED: SODIUM CHLORIDE 250 ML IV PRN (13:20)
[2022-07-25] MEDS ORDERED: SODIUM ZIRCONIUM CYCLOSILICATE (LOKELMA) 5 GM PACKET PO SCH (13:30)
[2022-07-25] MEDS: hydrALAZINE HCL 50 MG TABLET (FP) PO SCH ×3 (16:00→21:33)
[2022-07-25 18:47] VITALS: RESP 18
[2022-07-25] MEDS: HEPARIN NA (PORCINE) 5,000 UNITS/ML 1ML VIAL SQ SCH ×2 (20:04→21:37)
[2022-07-26] MEDS: ALBUTEROL SO4 0.083% IH SOL 2.5 MG/3 ML VIAL.NEB. NEB PRN ×2 (00:17→11:42)
[2022-07-26] MEDS: hydrALAZINE HCL 50 MG TABLET (FP) PO SCH ×2 (05:48→14:48)
[2022-07-26] MEDS: HEPARIN NA (PORCINE) 5,000 UNITS/ML 1ML VIAL SQ SCH ×2 (05:48→14:49)
[2022-07-26] MEDS: SEVELAMER CARBONATE 800 MG TAB (FP) PO SCH ×2 (08:14→17:32)
[2022-07-26] MEDS: ISOSORBIDE DINITRATE 10 MG TABLET PO SCH ×3 (08:51→17:32)
[2022-07-26 09:16] LABS: HEMATOCRIT 31.7 % (35.4-49); HEMOGLOBIN 10.4 GM/dL (11.7-16.9); MCH 28.9 pg (25.7-33.7); MCHC 32.8 g/dl (32.0-35.9); MEAN PLT VOLUME 6.8 fl (7.5-11.1); PLATELET COUNT 240 10^3/uL (134-434); RDW 16.1 % (11.9-15.9); WHITE BLOOD COUNT 6.5 K/mm3 (4.0-10.0)
[2022-07-26 09:38] LABS: ANION GAP 10 MMOL/L (8-16); BLOOD UREA NITROGEN 46.3 mg/dL (7-18); CALCIUM 8.4 mg/dL (8.5-10.1); CHLORIDE 101 mmol/L (98-107); CO2 28 mmol/L (21-32); CREATININE 11.3 mg/dL (0.55-1.3); GLUCOSE,RANDOM 91 mg/dL (74-106); SODIUM 139 mmol/L (136-145)
[2022-07-26] MEDS ORDERED: HEPARIN NA (PORCINE) 5,000 UNITS/ML 1ML VIAL IVPUSH ONE (10:00)
[2022-07-26 10:28] VITALS: TEMP 98.6
[2022-07-26 12:20] VITALS: BP 172/68
[2022-07-26 13:25] VITALS: BMI 21.2
[2022-07-26] MEDS: CARVEDILOL 3.125 MG TABLET (FP) PO SCH (14:45)
[2022-07-26] MEDS: ASPIRIN COATED 81 MG TABLET.EC PO SCH (14:45)
[2022-07-26] MEDS: SODIUM ZIRCONIUM CYCLOSILICATE (LOKELMA) 5 GM PACKET PO SCH (14:46)
[2022-07-26] MEDS: amLODIPine BESYLATE 5 MG TABLET (FP) PO SCH (14:46)
[2022-07-26] MEDS: CINACALCET HCL 30 MG TAB (FP) PO SCH (14:47)
[2022-07-26] MEDS: PANTOPRAZOLE 40 MG TABLET PO SCH (14:47)
[2022-07-26 16:51] VITALS: PULSE 80
== END 2022-07-26 15:30 | disposition home or self-care (01) | DRG 194 ==
LOC: JER 21:16 → JERBED 07-24 03:23 → JICU 07-24 14:23 → J7W 07-25 18:34
PROVIDERS: ADMIT Internal Medicine; ATTEND Internal Medicine
PROC: 5A1D70Z Performance of Urinary Filtration, Intermittent, Less than 6 Hours Per Day (ICD-10-PCS; principal; 2022-07-26)
DX: I13.2 Hypertensive heart and chronic kidney disease with heart failure and with stage 5 chronic kidney disease, or end stage renal disease (principal); N18.6 End stage renal disease; I50.22 Chronic systolic (congestive) heart failure; Z99.2 Dependence on renal dialysis; E78.5 Hyperlipidemia, unspecified; I69.354 Hemiplegia and hemiparesis following cerebral infarction affecting left non-dominant side; E87.5 Hyperkalemia; M62.81 Muscle weakness (generalized); Z99.81 Dependence on supplemental oxygen; R59.0 Localized enlarged lymph nodes; J44.9 Chronic obstructive pulmonary disease, unspecified; I25.10 Atherosclerotic heart disease of native coronary artery without angina pectoris; R53.81 Other malaise; R06.02 Shortness of breath; R63.0 Anorexia
CPT/HCPCS: 36415; 71045-TC-FY; 80048; 80053; 82962; 83735; 84100; 84484; 85027; 85610; 85730; 86803; 87340; 93005; 93010; 94640; 99285-25; C9803-CS; J1644; U0003; U0005

== ENCOUNTER 2023-12-03 15:27 | Inpatient (IN) | payer OTHER ==
[2023-12-03 16:44] LABS: VENOUS BASE EXCESS -4.9 mmol/L (-2-2); VENOUS O2 SATURATION 61.1 % (70-80); VENOUS PCO2 39.3 mmHg (38-52); VENOUS PH 7.336 (7.310-7.410)
[2023-12-03 16:48] LABS: BASO % 0.8 % (0-2.0); EOS % 4.6 % (0-4.5); HEMATOCRIT 26.8 % (35.4-49); HEMOGLOBIN 8.8 GM/dL (11.7-16.9); LYMPH % 16.5 % (8-40); MCH 30.8 pg (25.7-33.7); MCHC 32.9 g/dl (32.0-35.9); MEAN CELL VOLUME 93.7 fl (80-96); MEAN PLT VOLUME 6.8 fl (7.5-11.1); MONO % 10.9 % (3.8-10.2); NEUT % 67.2 % (42.8-82.8); PLATELET COUNT 253 10^3/uL (134-434); RBC 2.86 M/mm3 (4.00-5.60); RDW 17.9 % (11.9-15.9); WHITE BLOOD COUNT 6.4 K/mm3 (4.0-10.0)
[2023-12-03 17:01] LABS: INR 1.09 (0.83-1.09); PROTHROMBIN TIME (PATIENT) 12.6 SEC (9.7-13.0)
[2023-12-03 17:04] LABS: ACTIVATED PTT 34.2 SECONDS (25.2-36.5)
[2023-12-03 17:09] LABS: CHLORIDE 104 mmol/L (98-107); POTASSIUM 3.9 mmol/L (3.5-5.1); SODIUM 139 mmol/L (136-145)
[2023-12-03 17:11] LABS: ALBUMIN 3.1 g/dl (3.4-5.0); ANION GAP 12 mmol/L (4-13); CALCIUM 8.5 mg/dL (8.5-10.1); CO2 22 mmol/L (21-32); GLUCOSE,RANDOM 98 mg/dL (74-106); MAGNESIUM 2.3 mg/dL (1.8-2.4)
[2023-12-03 17:14] LABS: PHOSPHOROUS 4.7 mg/dL (2.5-4.9); SGOT/AST 8 U/L (15-37); SGPT/ALT 9 U/L (13-61)
[2023-12-03 17:16] LABS: BILIRUBIN,TOTAL 0.5 mg/dL (0.2-1); TOT PROT 7.2 g/dl (6.4-8.2)
[2023-12-03 17:17] LABS: ALK PHOS 153 U/L (45-117); CREATININE 11.9 mg/dL (0.55-1.3)
[2023-12-03] MEDS ORDERED: HEPARIN NA (PORCINE) 5,000 UNITS/ML 1ML VIAL ONE (22:03)
[2023-12-03] MEDS: HEPARIN NA (PORCINE) 5,000 UNITS/ML 1ML VIAL SQ SCH (22:22)
[2023-12-04] MEDS ORDERED: hydrALAZINE HCL 50 MG TABLET (FP) PO ONE (01:23)
[2023-12-04] MEDS ORDERED: hydrALAZINE HCL 25 MG TABLET (FP) ONE (01:40)
[2023-12-04] MEDS: hydrALAZINE HCL 25 MG TABLET (FP) PO ONE (01:45)
[2023-12-04] MEDS ORDERED: hydrALAZINE HCL 50 MG TABLET (FP) ONE ×3 (06:07→21:13)
[2023-12-04] MEDS: hydrALAZINE HCL 50 MG TABLET (FP) PO SCH (06:24)
[2023-12-04 07:37] LABS: HEMATOCRIT 24.1 % (35.4-49); MCH 30.7 pg (25.7-33.7); MCHC 33.2 g/dl (32.0-35.9); MEAN CELL VOLUME 92.5 fl (80-96); MEAN PLT VOLUME 7.1 fl (7.5-11.1); PLATELET COUNT 228 10^3/uL (134-434); RBC 2.61 M/mm3 (4.00-5.60); WHITE BLOOD COUNT 4.8 K/mm3 (4.0-10.0)
[2023-12-04 08:01] LABS: POTASSIUM 3.5 mmol/L (3.5-5.1)
[2023-12-04 08:05] LABS: CALCIUM 8.7 mg/dL (8.5-10.1)
[2023-12-04 08:08] LABS: BLOOD UREA NITROGEN 33.7 mg/dL (7-18); CREATININE 7.2 mg/dL (0.55-1.3); PHOSPHOROUS 3.3 mg/dL (2.5-4.9)
[2023-12-04] MEDS ORDERED: CARVEDILOL 3.125 MG TABLET (FP) ONE ×2 (10:10→21:13)
[2023-12-04] MEDS ORDERED: amLODIPine BESYLATE 5 MG TABLET (FP) ONE (10:10)
[2023-12-04] MEDS ORDERED: ASPIRIN COATED 81 MG TABLET.EC ONE (10:10)
[2023-12-04] MEDS: ASPIRIN COATED 81 MG TABLET.EC PO SCH (10:15)
[2023-12-04] MEDS: CARVEDILOL 3.125 MG TABLET (FP) PO SCH (10:15)
[2023-12-04] MEDS: ISOSORBIDE DINITRATE 10 MG TABLET PO SCH (10:15)
[2023-12-04] MEDS: amLODIPine BESYLATE 5 MG TABLET (FP) PO SCH (10:16)
[2023-12-04] MEDS ORDERED: SODIUM CHLORIDE 250 ML IV PRN ×2 (13:29→13:31)
[2023-12-04] MEDS ORDERED: GABAPENTIN 100 MG CAPSULE PO SCH (14:00)
[2023-12-04] MEDS: EPOETIN ALFA-EPBX 4,000 UNIT/ML VIAL SQ ONE (17:40)
[2023-12-04] MEDS: IRON SUCROSE INJECTION 200 MG in SODIUM CHLORIDE 100 ML IVPB ONE (17:40)
[2023-12-04] MEDS ORDERED: HEPARIN NA (PORCINE) 5,000 UNITS/ML 1ML VIAL ONE ×2 (17:42→21:13)
[2023-12-05] MEDS: ALBUTEROL SO4 2.5/IPRATROPIUM 0.5 INH SOL 3 ML VIAL.NEB. NEB SCH (11:30)
[2023-12-05] MEDS ORDERED: SODIUM CHLORIDE 250 ML IV PRN (14:01)
[2023-12-06 10:32] LABS: HEMATOCRIT 26.7 % (35.4-49); HEMOGLOBIN 8.6 GM/dL (11.7-16.9); MCH 30.5 pg (25.7-33.7); MCHC 32.2 g/dl (32.0-35.9); MEAN CELL VOLUME 94.7 fl (80-96); MEAN PLT VOLUME 7.2 fl (7.5-11.1); PLATELET COUNT 281 10^3/uL (134-434); RBC 2.82 M/mm3 (4.00-5.60); WHITE BLOOD COUNT 4.3 K/mm3 (4.0-10.0)
[2023-12-06 10:45] LABS: CHLORIDE 102 mmol/L (98-107); POTASSIUM 3.7 mmol/L (3.5-5.1); SODIUM 141 mmol/L (136-145)
[2023-12-06 10:46] LABS: ANION GAP 10 mmol/L (4-13); CALCIUM 9.1 mg/dL (8.5-10.1); CO2 30 mmol/L (21-32); GLUCOSE,RANDOM 123 mg/dL (74-106)
[2023-12-06 10:50] LABS: CREATININE 7.8 mg/dL (0.55-1.3)
[2023-12-06] MEDS: EPOETIN ALFA-EPBX 10,000 UNIT/ML VIAL SQ ONE (12:02)
[2023-12-06] MEDS: ACETAMINOPHEN 325 MG TABLET (FP) PO PRN (21:28)
[2023-12-07] MEDS ORDERED: SODIUM CHLORIDE 250 ML IV PRN (16:39)
[2023-12-08 14:20] LABS: BASO % 1.9 % (0-2.0); EOS % 15.1 % (0-4.5); HEMOGLOBIN 9.7 GM/dL (11.7-16.9); LYMPH % 29.6 % (8-40); MCH 30.4 pg (25.7-33.7); MCHC 32.3 g/dl (32.0-35.9); MEAN CELL VOLUME 94.2 fl (80-96); MEAN PLT VOLUME 6.8 fl (7.5-11.1); MONO % 17.6 % (3.8-10.2); NEUT % 35.8 % (42.8-82.8); PLATELET COUNT 353 10^3/uL (134-434); RBC 3.19 M/mm3 (4.00-5.60); RDW 17.4 % (11.9-15.9); WHITE BLOOD COUNT 4.6 K/mm3 (4.0-10.0)
[2023-12-08 14:44] LABS: POTASSIUM 3.4 mmol/L (3.5-5.1)
[2023-12-08 14:46] LABS: CALCIUM 9.4 mg/dL (8.5-10.1)
[2023-12-08 14:47] LABS: BLOOD UREA NITROGEN 28.8 mg/dL (7-18)
[2023-12-08 14:50] LABS: CREATININE 4.7 mg/dL (0.55-1.3)
[2023-12-08 14:51] LABS: BILIRUBIN,TOTAL 0.3 mg/dL (0.2-1)
[2023-12-08 14:52] LABS: TOT PROT 7.4 g/dl (6.4-8.2)
[2023-12-08 15:46] VITALS: BMI 20.2
[2023-12-08] MEDS: CLOPIDOGREL BISULFATE 75 MG TABLET (FP) PO SCH (19:17)
[2023-12-08] MEDS ORDERED: ATORVASTATIN CA 80 MG TABLET (FP) PO SCH (22:00)
[2023-12-08] MEDS: ATORVASTATIN CA 80 MG TABLET (FP) PO SCH (22:14)
[2023-12-08] MEDS: TETRACAINE 0.5% OPHTH SOLN 2 ML BOTTLE OS ONE (22:48)
[2023-12-09] MEDS: TIMOLOL 0.5% OPHTHALMIC SOL 5 ML BOTTLE OD ONE (00:46)
[2023-12-09 03:48] VITALS: RESP 20
[2023-12-09 05:41] VITALS: BP 143/95; PULSE 77; TEMP 98.1
[2023-12-09 07:20] LABS: CHOLESTEROL 154 mg/dL (50-200); LDL CHOLESTEROL (ONLY SJRH) 63 mg/dL (5-100)
[2023-12-09 07:22] LABS: HDL CHOLESTEROL 64 mg/dL (40-60)
== END 2023-12-09 06:30 | disposition short-term general hospital (02) | DRG 425 ==
LOC: JER 15:27 → JERBED 18:30 → OBSVTOIN 21:49 → J4W 12-05 03:49
PROVIDERS: ADMIT Internal Medicine; ATTEND Family Medicine
PROC: 5A1D70Z Performance of Urinary Filtration, Intermittent, Less than 6 Hours Per Day (ICD-10-PCS; principal; 2023-12-03)
DX: E87.70 Fluid overload, unspecified (principal); I69.354 Hemiplegia and hemiparesis following cerebral infarction affecting left non-dominant side; I73.9 Peripheral vascular disease, unspecified; I25.10 Atherosclerotic heart disease of native coronary artery without angina pectoris; I13.2 Hypertensive heart and chronic kidney disease with heart failure and with stage 5 chronic kidney disease, or end stage renal disease; N18.6 End stage renal disease; Z99.2 Dependence on renal dialysis; I50.21 Acute systolic (congestive) heart failure; R59.0 Localized enlarged lymph nodes; J96.01 Acute respiratory failure with hypoxia; I24.89 Other forms of acute ischemic heart disease; J84.9 Interstitial pulmonary disease, unspecified; I45.10 Unspecified right bundle-branch block; H53.9 Unspecified visual disturbance; D63.1 Anemia in chronic kidney disease; J44.9 Chronic obstructive pulmonary disease, unspecified; H40.9 Unspecified glaucoma; I47.10 Supraventricular tachycardia, unspecified
CPT/HCPCS: 36415; 70450-TC; 70551-TC; 71045-TC-FY; 80048; 80053; 80061; 82728; 82803; 83540; 83550; 83735; 83880; 84100; 84466; 84484; 85025; 85027; 85610; 85651; 85730; 86140; 86704; 86803; 86850; 86870; 86880; 86900; 86901; 86902; 87340; 87517; 87635; 93005; 93010; 93306-TC; 94640; 94660; 97116-GP; 97162-GP; 99285-25; G0378; J1644; J1756; Q5106